=== PATIENT | male | born 1970 | race Caucasian/White ===

== ENCOUNTER 2018-03-19 10:29 | Observation (INO) | payer OTHER, SELFPAY ==
[2018-03-19] VITALS (9 sets, daily range): BP systolic 111–141; BP diastolic 43–87; PULSE 72–109; RESP 15–18; TEMP 36.5–37.9; O2SAT 91–98; BMI 35.9
--- NOTE | 2018-03-19 10:32 | EKG12_ITS ---
Test Reason : PRE OP Blood Pressure : / mmHG Vent. Rate : 081 BPM Atrial Rate : 081 BPM P-R Int : 142 ms QRS Dur : 082 ms QT Int : 380 ms P-R-T Axes : 009 000 038 degrees QTc Int : 441 ms Normal sinus rhythm Abnormal ECG Confirmed by MAX CHANCE, RAINER ([id number]), editor news GAVIN ISBELL ([id number]) on 03/25/2018 9:19:53 AM Referred By: MOOK Confirmed By:RAINER SANTANA MD
--- NOTE | 2018-03-19 10:38 | ED.VISSUMM ---
- ER Visit Summary Date of Service: 03/19/18 Chief Complaint: Injury left knee and unable to move History of Present Illness: The patient is a 47 M who was cutting tree stumps. Chainsaw bucked. He sustained laceration over the left knee. He states he is unable to move his left lower extremity. He has not eaten since last evening. He reports sips of water this morning. Last tetanus immunization unknown. Reports allergy to penicillin, unknown reaction. Patient denies fever, chills night sweats. Denies any ocular, visual auditory symptoms he denies any cardiac respiratory symptoms. He denies any GI symptoms. He is on no anticoagulant. He denies paresthesia, anesthesia or motor weakness. Physical Examination: Vital signs remarkable for an elevated blood pressure 133/87. Head is atraumatic normocephalic. Pupils are equal round reactive. Extraocular muscles are intact. TMs are pearly white with landmarks noted. Nares patent with no drainage. Posterior pharynx without erythema or exudate. Uvula is midline. There is no dysphonia or dysphasia. Trachea is midline. There is no stridor with auscultation of the neck. Heart is regular without murmur, gallop or rub. S1 and S2 are normal. Lungs are clear to auscultation with good movement of air bilaterally. Abdomen soft nontender. Examination left lower extremity reveals a 5+ cm horizontal laceration over the left patella. Exploration of the wound reveals debris and complete laceration of the quadricep tendon. DP and PT pulses are palpable. He is alert oriented with a nonfocal neurologic exam. Test Results: EKG reveals a sinus rhythm rate of 81 with motion artifact. Two-view x-ray of the knee reveals subcutaneous air with disruption of the quadricep tendon. There appears to be involvement of the lateral femoral condyle as well. Air is noted within the joint as well. CBC and BMP are unremarkable. Emergency Department Course and Treatment: IV was established. He was medicated with 4 mg of Zofran 4 mg of morphine. Tetanus immunization was updated. Because of penicillin allergy he received 600 mg of clindamycin. Appropriate preoperative blood work was obtained as well as EKG. Patient was made n.p.o. Dr. Vyas was contacted and plan is to the operating room. Treatment Plan: Orthopedic consultation. [address] Néstor Scott Disposition: Operating room Impression: 1. Traumatic arthrotomy left knee with complete laceration quadricep tendon and possible injury to lateral femoral condyle This note was generated with [employer] dictation software. It may contain incorrect words, spelling, and punctuation that were not noted in review of the chart prior to signing ED Disposition - Plan for ED Patient: Chief Complaint: Trauma
[2018-03-19] MEDS: Ondansetron 4 MG/2 ML Vial IV (10:41)
[2018-03-19] MEDS: Diphth,Pertuss(Acell),Tet Vac 0.5 ML Vial IM (10:41)
[2018-03-19] MEDS: 0.9% Normal Saline 1,000 ML 150 ML IV ×2 (10:41→19:40)
[2018-03-19] MEDS: Morphine 4 MG/ML Syringe IV (10:41)
--- NOTE | 2018-03-19 10:41 | ED.DCSUM_ITS ---
- ER Visit Summary Date of Service: 03/19/18 Chief Complaint: Injury left knee and unable to move History of Present Illness: The patient is a 47 M who was cutting tree stumps. Chainsaw bucked. He sustained laceration over the left knee. He states he is unable to move his left lower extremity. He has not eaten since last evening. He reports sips of water this morning. Last tetanus immunization unknown. Reports allergy to penicillin, unknown reaction. Patient denies fever, chills night sweats. Denies any ocular, visual auditory symptoms he denies any cardiac respiratory symptoms. He denies any GI symptoms. He is on no anticoagulant. He denies paresthesia, anesthesia or motor weakness. Physical Examination: Vital signs remarkable for an elevated blood pressure 133/ 87. Head is atraumatic normocephalic. Pupils are equal round reactive. Extraocular muscles are intact. TMs are pearly white with landmarks noted. Nares patent with no drainage. Posterior pharynx without erythema or exudate. Uvula is midline. There is no dysphonia or dysphasia. Trachea is midline. There is no stridor with auscultation of the neck. Heart is regular without murmur, gallop or rub. S1 and S2 are normal. Lungs are clear to auscultation with good movement of air bilaterally. Abdomen soft nontender. Examination left lower extremity reveals a 5+ cm horizontal laceration over the left patella. Exploration of the wound reveals debris and complete laceration of the quadricep tendon. DP and PT pulses are palpable. He is alert oriented with a nonfocal neurologic exam. Test Results: EKG reveals a sinus rhythm rate of 81 with motion artifact. Two- view x-ray of the knee reveals subcutaneous air with disruption of the quadricep tendon. There appears to be involvement of the lateral femoral condyle as well. Air is noted within the joint as well. CBC and BMP are unremarkable. Emergency Department Course and Treatment: IV was established. He was medicated with 4 mg of Zofran 4 mg of morphine. Tetanus immunization was updated. Because of penicillin allergy he received 600 mg of clindamycin. Appropriate preoperative blood work was obtained as well as EKG. Patient was made n.p.o. Dr. Vyas was contacted and plan is to the operating room. Treatment Plan: Orthopedic consultation. [address] Néstor Scott Disposition: Operating room Impression: 1. Traumatic arthrotomy left knee with complete laceration quadricep tendon and possible injury to lateral femoral condyle This note was generated with [employer] dictation software. It may contain incorrect words, spelling, and punctuation that were not noted in review of the chart prior to signing ED Disposition - Plan for ED Patient: Chief Complaint: Trauma
[2018-03-19 10:44] LABS: Absolute Lymphocyte Count 2.85 X10^3/ul (0.83-4.51); Basophil# 0.06 X10^3/uL; Basophil% 0.8 % (0-1); Eosinophil# 0.22 X10^3/uL; Eosinophils% 2.8 % (0-5); Hematocrit 45.6 % (40-54); Hemoglobin 15.4 g/dl (13.0-16.5); Lymphocyte # 2.85 X10^3/ul (4.0); Lymphocyte % 35.9 % (19-41); Mean Corp Hgb Conc 33.8 g/gl (32-36); Mean Corpuscular Hgb 30.8 pg (27.0-32.0); Mean Corpuscular Volume 91.2 fL (80-94); Mean Platelet Vol. 9.8 fl (6.2-12.0); Monocyte# 0.83 X10^3/uL; Monocyte% 10.5 % (0-10); Neutrophil # 3.95 X10^3/uL (2.7-7.7); Neutrophil % 49.7 % (47-70); POSITIVE COUNT NO; POSITIVE DIFFERENTIAL NO; POSITIVE MORPHOLOGY NO; Platelet Count 294 K/mm3 (150-450); RBC Distribution Width CV 12.3 % (11.6-14.6); RBC Distribution Width SD 40.9 fl (35.1-43.9); White Blood Count 7.9 K/mm3 (4.4-11.0)
[2018-03-19] MEDS: Clindamycin 600 MG/50 ML BAG 100 MG IV (10:49)
[2018-03-19] MEDS: DiphenhydrAMINE 50 MG/ML Syringe 25 MG IV (10:58)
--- NOTE | 2018-03-19 11:15 | RAD_ITS ---
STUDY: X-RAY - LEFT KNEE REASON FOR EXAM: Chainsaw injury of the left knee. TECHNIQUE: 2 view(s) of the knee. COMPARISON: None. FINDINGS: Normal visualized distal femur. Normal visualized proximal tibia and fibula. Normal proximal tibiofibular articulation. Normal medial femorotibial compartment. Normal lateral femorotibial compartment. Normal patellofemoral articulation. There is a soft tissue defect overlying the patella with soft tissue gas and gas in the knee joint. There may be a quadriceps tendon injury. RAD/Knee 1 or 2 Views IMPRESSION: Soft tissue defect overlying the patella with gas in the soft tissues and knee joint. No demonstrated fracture. Electronically Signed: Chase Galarza MD at 11:48 EDT Tel , Service support ,
[2018-03-19 11:18] LABS: Anion Gap 10 (5-15); BUN 13 mg/dL (7-18); BUN/Creat Ratio 13.1 RATIO (10-20); Calcium,Total 8.6 mg/dL (8.5-10.1); Chloride 107 mmol/L (98-107); Creatinine, Serum 0.99 mg/dL (0.70-1.30); EST Glomerular Filtration Rate 87 mL/min (>60); Est Glom Filt Rate - Afr Amer 105 mL/min (>60); Estimated Creatinine Clearance 109.55 ml/min; Glucose 106 mg/dL (74-106); Sodium Level 141 mmol/L (136-145)
--- NOTE | 2018-03-19 11:22 | NURSING ---
pt had reaction after morphine administration. rash up arm and chest, gave pt benadryl which resolved rash , added morphine to allergy list.
--- NOTE | 2018-03-19 12:04 | PCM.HP.STD ---
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 Sean was apparently working with a chain saw to remove a stump in a squatted position. The chainsaw kicked and ended up striking his thigh causing a full thickness laceration. He went to the emergency department where it was identified that he had a quadriceps tendon injury and laceration full-thickness which was quite dirty. His immunizations were updated by the ER physician. X-rays were obtained which were negative. Patient's pain is reasonably controlled Past Medical History Allergies morphine Allergy (Verified 03/19/18 11:22) Rash reaction noted in er after administration, was added to allergy list after benadryl Penicillins [PCN] Allergy (Verified 03/19/18 10:29) Unknown Home Medications: Ambulatory Orders Medication Instructions Recorded NK [NK] 03/19/18 Surgical History: - - ORIF of his hip for fracture Lives: Spouse/ Significant Other Smoking Status: Never smoker Review of Systems Constitutional: Denies: Chills, Fever, Weight Change HEENT: Denies: Head Aches, Sinus Congestion, Sinus Drainage Cardiovascular: Denies: Chest Pain, Palpitations Respiratory: Denies: Cough, Shortness of breath at rest, Sputum production Gastrointestinal: Denies: Abdominal Pain, Nausea, Vomiting Genitourinary: Denies: Dysuria Musculoskeletal: Reports: - - Per history of present illness Skin: Reports: Wounds - Left thigh Neurological: Denies: Numbness, Tingling, Focal weakness Psychiatric: Denies: Anxiety, Depression, Homicidal Ideations, Suicidal Ideations Hematologic/ Lymphatic: Denies: Easy Bruising, Easy Bleeding VTE Information - Inpt Only VTE Present on Admission: Yes VTE Mechan Device Prophylaxis: SCD's VTE Pharm Prophylaxis ordered?: Yes - Physical Exam General: Alert, Oriented x3, Cooperative HEENT: Atraumatic, PERRLA, EOMI, Normocephalic Neck: Supple, No JVD, Negative Carotid Bruits Lungs: Normal air movement Cardiovascular: Regular rate Abdomen: Soft Extremities: - - Focused examination patient's left lower extremity reveals a 5 cm laceration overlying the patella superior aspect which is full-thickness. There does appear to be quadriceps tendon involvement. Patient unable to complete a straight leg raise. He has no neurologic deficit. Full ankle range of motion is noted. Secondary survey is negative for pain in the right lower extremity and bilateral upper extremities Neurological: Cranial nerves II-XII grossly intact Vital Signs Temp Pulse Resp BP Pulse Ox 97.8 F 75 15 111/79 94 03/19/18 10:30 03/19/18 10:53 03/19/18 10:53 03/19/18 10:53 03/19/18 10:53 Oxygen Delivery Method Room Air Weight: 279 lb 5.211 oz Body Mass Index (BMI) 35.9 Laboratory Tests Past 24 Hrs 03/19/18 03/19/18 03/19/18 10:30 10:30 10:54 WBC 7.9 RBC 5.00 Hgb 15.4 Hct 45.6 MCV 91.2 MCH 30.8 MCHC 33.8 RDW 12.3 RDW Differential 40.9 Plt Count 294 MPV 9.8 Immature Gran % (Auto) 0.300 Neut % (Auto) 49.7 Lymph % (Auto) 35.9 Darke % (Auto) 10.5 H Eos % (Auto) 2.8 Baso % (Auto) 0.8 Absolute Neuts (auto) 4.0 Absolute Lymphs (auto) 2.85 Total Counted Not Reportable Sodium Cancelled 141 Potassium Cancelled 4.0 Chloride Cancelled 107 Carbon Dioxide Cancelled 24.0 Anion Gap Cancelled 10 BUN Cancelled 13 Creatinine Cancelled 0.99 Estim Creat Clear Calc Cancelled 109.55 Est GFR (MDRD) Af Amer Cancelled 105 Est GFR (MDRD) Non-Af Cancelled 87 BUN/Creatinine Ratio Cancelled 13.1 Glucose Cancelled 106 Calcium Cancelled 8.6 Assessment/Plan Full-thickness laceration complex 5 cm in length involving muscle/tendon left thigh The patient will be taken to the operating room for repair of the quadriceps tendon and laceration. We will also perform a washout as the wound is dirty. This will be done arthroscopically as I do suspect that this does involve the knee joint itself. Patient will be admitted overnight and likely discharged tomorrow if stable. I discussed this with Virgen at length. Risks of surgery were discussed and he does understand the alternative of no surgery which would not be good in terms of functional lower extremity. Consent form was signed
--- NOTE | 2018-03-19 14:09 | PCM.OPRPT ---
Report of Operation Date of Procedure: 03/19/18 Pre-Operative Diagnosis: Chainsaw injury left knee with complex laceration and laceration of the quadriceps tendon Post-Operative Diagnosis: Same Surgery/Procedure Performed:: Arthroscopic irrigation of left knee with debridement and primary closure of quadriceps tendon and primary closure of complex laceration 8 cm in length Description of Surgical Findings:: Quadriceps laceration Type of Anesthesia:: General Estimated Blood Loss (mL): 50 Fluids Replaced: See anesthesia report Description of Procedure: Surgical indications: Please see history and physical dated 03/19/2018 Procedure description: Patient was greeted in the preoperative area. His left lower extremity was marked with surgical marker. Patient was then taken to operating room suite #5. After adequate anesthesia was obtained and airway secured well-padded tourniquet was placed on patient's left lower extremity. The leg was then prepped draped in usual sterile fashion. Surgical timeout was performed surgery was commenced. Saline arthrogram was initially performed there is no obvious extravasation of fluid at the wound. Exploration of the wound however did confirm the presence of a laceration to the quadriceps tendon that did propagate into the knee joint. Because of this I did use a arthroscope and assess the articular cartilage which appeared to be in normal repair without any abnormality. At this point I then used the arthroscopic pump and irrigated the knee as well as the wound with approximately 12,000 mL of fluid. Once this was complete I then evaluated the quadriceps tendon. Patient had complete laceration of the lateral three fourths of the quadriceps tendon off of the superior pole of the patella. There is a very small amount of tissue remaining on the superior pole patella superior laterally. There is a partial-thickness tear that did extend into the vastus medialis on the medial side. Medial side of the psoas tendon remained intact. I decorticated the superior pole of the patella and created 2 drill holes with a 2.5 mm drill bit in an antegrade fashion. I then cleaned the leading edge of the affected quadriceps tendon. I did have to extend my incision from the laceration in a longitudinal fashion proximally in order to perform the repair. #5 FiberWire was then placed in a whipstitch type fashion through the quadriceps tendon. 1 of these limbs were then placed in the middle drill hole and the second limb was placed in the lateral drill hole. These were retrieved with a suture passer. With the knee held in strict extension I then tied this over a bony bridge distally in order to approximate the prepared tendon to the decorticated superior pole the patella. Once this was complete #1 Vicryl on a tapered needle was then used to approximate the medial portion to this repaired portion as well as to repair the laceration that propagated into the vastus medialis. I then in a [id number] fashion repaired the remaining tissue from the quadriceps tendon to the repaired quadriceps tendon for additional security. The repair did have to extend into the lateral retinaculum which was also approximated with [id number] #1 Vicryl. I was unable to flex the knee to approximately 30? without concern of gapping at the repair site I did not feel that I should take this further than 30?. This portion of the procedure the incision was then closed with 0 Vicryl and the laceration was debrided to remove any nonviable jagged edges from the chainsaw in an inverted type fashion using 0 Vicryl. Once the skin was approximated surgical gogo were placed in the skin. A well-padded nonadherent sterile dressing was applied secured with web roll and Albino wrap. Patient was then placed in a knee immobilizer. Postoperatively patient will be weightbearing as tolerated as long as his knee is immobilized in an extended fashion. Patient will require maintaining full extension of this knee for approximately 4-[address] him in a T ROM hinged brace which he will start some bending at approximately 4 weeks graduating this by approximately 10? weekly as able. Isometric exercises can begin at 6 weeks and progressive resistance exercises at approximately 8 weeks - Complications None known - Admit VTE Documentation VTE Present on Admission: Yes VTE Mechan Device Prophylaxis: SCD's, Thigh High ANTONELLA Hose VTE Pharm Prophylaxis ordered?: Yes
[2018-03-19] MEDS: HYDROcodone Bitartrate/Apap 5/325 Tablet PO ×2 (16:28→22:43)
[2018-03-19] MEDS: Clindamycin 900 MG/50 ML BAG 75 MG IV (22:01)
[2018-03-20 02:51] VITALS: BP 113/56; PULSE 110; RESP 16; TEMP 36.9; O2SAT 98
[2018-03-20] MEDS: 0.9% Normal Saline 1,000 ML 150 ML IV (03:56)
[2018-03-20] MEDS: Clindamycin 900 MG/50 ML BAG 75 MG IV (05:54)
[2018-03-20] MEDS: Aspirin E.C. 325 MG Tablet PO (08:20)
[2018-03-20] MEDS: HYDROcodone Bitartrate/Apap 5/325 Tablet PO (08:20)
[2018-03-20 08:50] VITALS: BP 128/88; PULSE 98; RESP 18; TEMP 37.1; O2SAT 98
--- NOTE | 2018-03-20 09:11 | PN.ORTHO_ITS ---
Subjective: Patient sitting at bedside eating breakfast. Patient states pain is well- managed. Denies any numbness or tingling or loss of function of his left foot. Denies chest pain, shortness breath, calf pain, nausea vomiting. No other complaints ready for discharge home Objective: Incision/laceration clean dry and intact. Dressings clean dry intact. No calf tenderness. He has good plantar flexion dorsiflexion of the foot and ankle. Neurovascular is otherwise intact. Vital signs and labs all within normal limits. Patient is afebrile. - Physical Exam General: Alert, Oriented x3, Cooperative Oral: Moist Mucosa Neurological: Cranial nerves II-XII grossly intact Psych/Mental Status: Normal Affect, Alert and oriented to time, place, person, mood and affect Vital Signs Temp Pulse Resp BP Pulse Ox 98.5 F 110 H 16 113/56 L 98 03/20/18 02:51 03/20/18 02:51 03/20/18 02:51 03/20/18 02:51 03/20/18 02:51 Oxygen Flow Rate (L/min) 3 Oxygen Delivery Method Nasal Cannula Weight: 126.7 kg Body Mass Index (BMI) 35.9 Intake and Output for Last 24 Hours 03/18/18 03/19/18 03/20/18 23:59 23:59 23:59 Intake Total 2300 / 2300 2140 / 2140 Balance 2300 / 2300 2140 / 2140 Medical Necessity - Tobacco Use Smoking Status: Never smoker Assessment/Plan Status post arthroscopic irrigation of left knee, debridement, repair of quadriceps tendon, and complex closure of chainsaw injury/laceration Plan 1. Continue all pain medications as prescribed 2. Continue antibiotics as prescribed 3. Must wear knee immobilizer at all times. With no flexion of the knee. 4. Weight-bear as tolerated with the assistance of walker or crutches and must be wearing the immobilizer 5. Elevate and ice 6. Follow-up on 03/25/2018
--- NOTE | 2018-03-20 09:22 | PCM.DC.ORTHO ---
Discharge Diet: No Restrictions Discharge Activity: May Not Drive, May Not Shower, Use Walker, Use Crutches May shower in (days): 7 May resume sexual activity in: No Restrictions Ice area for (Minutes): 30 Weight Bearing Status: Weight bearing as tolerated Keep extremity elevated above heart level: Operative Extremity Call your doctor if your incision/area has: Continuous Slow Oozing, Sudden Increased Bleeding, Increased Pain/ Swelling, Increased Redness, Foul Smelling Discharge Call your doctor if you observe: Fever of 101 or Higher, Coldness, Increased Pain, Numbness or Tingling, Change in Color, Calf discomfort Additional Instructions: 1 asprin 325mg po daily for 2 weeks weight bear only with knee immobilizer in place Allergies/Adverse Reactions: Allergies morphine Allergy (Verified 03/19/18 11:22) Rash reaction noted in er after administration, was added to allergy list after benadryl Penicillins [PCN] Allergy (Verified 03/19/18 10:29) Unknown Medications to take at Discharge Acetaminophen [Tylenol Extra Strength] 500 mg PO Q8 14 Days #90 tab 03/20/18 Aspirin E.C. [Ecotrin] 325 mg PO DAILY@0800 tablet 03/20/18 Clindamycin HCl [Cleocin HCl] 300 mg PO Q8H 10 Days #30 cap 03/20/18 Ensure Enlive 120 ml PO 4X/DAY liquid 03/20/18 Oxycodone [Oxyir] 5 mg PO Q6H PRN PRN 7 Days #60 tab 03/20/18 The following prescriptions were given: Oxycodone [Oxyir] 5 mg PO Q6H PRN PRN 7 Days #60 tab PRN Reason: Pain Acetaminophen [Tylenol Extra Strength] 500 mg PO Q8 14 Days #90 tab Clindamycin HCl [Cleocin HCl] 300 mg PO Q8H 10 Days #30 cap Primary Care Physician: Stan Noland NP-C [Primary Care Provider] - Please Follow Up With: Tito Chowdary PA-C When: 03-25-2018 call for appt. [phone]
== END 2018-03-20 11:20 | disposition home or self-care (01) ==
LOC: ED 11:02 → SDC 11:55 → AC 11:56 → MS3 12:45 → SDC 12:45
PROVIDERS: Orthopaedic Surgery; Admitting Provider Orthopaedic Surgery; Emergency Provider Emergency Medicine; Family Provider Nurse Practitioner Family; PCP Nurse Practitioner Family; Visit Provider Orthopaedic Surgery
PROC: (CPT 27385; principal; 2018-03-19 09:15)
DX: S76.122A Laceration of left quadriceps muscle, fascia and tendon, initial encounter (principal); S71.112A Laceration without foreign body, left thigh, initial encounter; W29.3XXA Contact with powered garden and outdoor hand tools and machinery, initial encounter; Y93.H9 Activity, other involving exterior property and land maintenance, building and construction; Y92.9 Unspecified place or not applicable; Z87.891 Personal history of nicotine dependence
CPT/HCPCS: 27385; 73560; 80048; 85025; 90715; 93005; 96361; 96365; 96375; 96376; 99218; 99283; J7030; G0378; J2405

== ENCOUNTER 2018-03-23 21:59 | Inpatient (IN) | payer OTHER, SELFPAY ==
[2018-03-23 22:00] VITALS: BP 117/73; PULSE 136; RESP 17; TEMP 38.1; BMI 29.0
--- NOTE | 2018-03-23 22:31 | RAD_ITS ---
STUDY: X-RAY - LEFT KNEE REASON FOR EXAM: Male, 47 years old. Fever, recent knee surgery to fix chainsaw related injury TECHNIQUE: 2 view(s) of the knee. COMPARISON: March 19, 2018. FINDINGS: Normal visualized distal femur. Normal visualized proximal tibia and fibula. Normal proximal tibiofibular articulation. Normal medial femorotibial compartment. Normal lateral femorotibial compartment. Normal patellofemoral articulation. There is anterior soft tissue edema and post surgical changes with multiple gogo. Subcutaneous gas is noted in the distal thigh. RAD/Knee 1 or 2 Views IMPRESSION: Anterior soft tissue edema and postsurgical changes of the knee with multiple gogo. Subcutaneous gas droplets in the distal thigh soft tissues anteriorly. Electronically Signed: Garrison Sanford DO at 23:08 EDT Tel [phone], Service support ,
[2018-03-23] MEDS: Acetaminophen 500 MG Tablet 1000 MG PO (22:39)
--- NOTE | 2018-03-23 22:50 | RAD_ITS ---
STUDY: X-RAY CHEST REASON FOR EXAM: Male, 47 years old. Fever TECHNIQUE: Single frontal view COMPARISON: None. FINDINGS: The lungs are clear and expanded. There is no demonstrated pleural abnormality. Cardiomegaly. Normal mediastinum and jackelyn. Normal visualized pulmonary arteries. Normal visualized aortic arch and descending thoracic aorta. Normal visualized thoracic spine. Normal visualized ribs, clavicles, and shoulders. There is no demonstrated abnormality of the visualized soft tissue structures of the upper abdomen. RAD/Chest 1 View (Portable) IMPRESSION: Cardiomegaly. Electronically Signed: Garrison Sanford DO at 23:00 EDT Tel [phone], Service support ,
[2018-03-23 22:56] LABS: Absolute Lymphocyte Count 1.61 X10^3/ul (0.83-4.51); Absolute Neutrophil Count 7.5 X10^3/uL (2.0-7.7); Basophil# 0.03 X10^3/uL; Basophil% 0.3 % (0-1); Eosinophil# 0.08 X10^3/uL; Eosinophils% 0.8 % (0-5); Hematocrit 40.2 % (40-54); Hemoglobin 13.5 g/dl (13.0-16.5); Lymphocyte # 1.61 X10^3/ul (4.0); Lymphocyte % 16.6 % (19-41); Mean Corp Hgb Conc 33.6 g/gl (32-36); Mean Corpuscular Hgb 31.1 pg (27.0-32.0); Mean Corpuscular Volume 92.6 fL (80-94); Mean Platelet Vol. 9.5 fl (6.2-12.0); Monocyte# 0.45 X10^3/uL; Monocyte% 4.7 % (0-10); Neutrophil # 7.48 X10^3/uL (2.7-7.7); Neutrophil % 77.4 % (47-70); Platelet Count 293 K/mm3 (150-450); RBC Distribution Width CV 12.2 % (11.6-14.6); RBC Distribution Width SD 41.7 fl (35.1-43.9); Red Blood Count 4.34 M/mm3 (4.6-6.2); White Blood Count 9.7 K/mm3 (4.4-11.0)
[2018-03-23 22:58] LABS: POSITIVE COUNT NO; POSITIVE DIFFERENTIAL NO; POSITIVE MORPHOLOGY NO
[2018-03-23 23:11] LABS: Erythrocyte Sedimentation Rate 111 mm/hr (0-15)
[2018-03-23 23:15] LABS: International Normalized Ratio 1.1; Prothrombin Time (Protime)PT. 13.8 SECONDS (11.7-14.9)
[2018-03-23 23:16] LABS: ALB/GLOB Ratio 0.6 RATIO (0.9-2.4); AST(SGOT) 35 U/L (15-37); Alanine Aminotransfer ALT/SGPT 53 U/L (16-61); Albumin, Serum 2.8 g/dL (3.2-5.0); Alkaline Phosphatase 84 U/L (45-117); Anion Gap 8 (5-15); BUN 11 mg/dL (7-18); BUN/Creat Ratio 11.1 RATIO (10-20); Calcium,Total 8.8 mg/dL (8.5-10.1); Chloride 100 mmol/L (98-107); EST Glomerular Filtration Rate 86 mL/min (>60); Est Glom Filt Rate - Afr Amer 104 mL/min (>60); Estimated Creatinine Clearance 105.42 ml/min; Glucose 154 mg/dL (74-106); Partial Thromboplast Time 34.9 Seconds (24.1-36.2); Potassium 3.7 mmol/L (3.5-5.1); Protein, Total 7.8 g/dL (6.4-8.2); Sodium Level 134 mmol/L (136-145)
[2018-03-23 23:22] VITALS: TEMP 37.7
[2018-03-23 23:24] LABS: Lactic Acid 1.8 mmol/L (0.4-2.0)
--- NOTE | 2018-03-23 23:46 | ED.VISSUMM ---
- ER Visit Summary Date of Service: 03/23/18 Chief Complaint: Postoperative fever History of Present Illness: The patient is a 47 M presenting for evaluation secondary to postoperative fever. Patient suffered a chain saw injury on Thursday of last week. He underwent arthroscopic washout of his knee and open repair of his quadriceps tendon. He was discharged on a course of clindamycin. Patient reports that today he was having some generalized malaise and then developed a fever of 103. Denies any other symptoms such as cough nausea vomiting diarrhea associated with this. Review of systems otherwise negative. Physical Examination: Vital signs notable for temperature of 100.6 heart rate of 136. Well-nourished male no acute distress. Moist mucous membranes. No JVD. Heart was tachycardic and regular no murmurs. Lungs sounds clear to auscultation bilaterally no rhonchi rales or wheezes. Abdomen was soft and nontender. Dressing was taken down of the left lower extremity and shows evidence of a significant amount of swelling, erythema surrounding the patient's incision, and some streaking going up in the left groin. No palpable crepitus noted. Patient does not move his knee secondary to instructions of not to move it. No active drainage coming from the incision. Remainder physical otherwise unremarkable. Test Results: CBC demonstrates no evidence of leukocytosis, chemistry and coags are unremarkable, lactic acid was negative, ESR and CRP are significantly elevated. Chest x-ray by my personal review as well as radiology is negative except for some cardiomegaly. Knee shows postsurgical changes as well as some potential gas in the soft tissues of the thigh. Emergency Department Course and Treatment: Patient presented secondary to a postoperative fever. His likely source does seem to be coming from his knee and thigh. He does not have an overall presentation of necrotizing fasciitis, but does have some gas on his x-ray. He was treated with triple antibiotic therapy including vancomycin and aztreonam and clindamycin. I did communicate this with the covering orthopedist Dr. Plascencia, who feels that the patient is stable to be admitted and be evaluated by orthopedics in the morning. He requested hospitalist admission, I discussed this with the hospitalist and they wished this to be a surgical admission as it is a postsurgical complication. Hospitalist and orthopedist will discuss this, and the patient will be admitted for further treatment. Disposition: Admission Impression: 1. Septic arthritis of the left knee status post operative washout This note was generated with [employer] dictation software. It may contain incorrect words, spelling, and punctuation that were not noted in review of the chart prior to signing ED Disposition - Plan for ED Patient: Disposition: Acute Care [facility] Chief Complaint: Fever
--- NOTE | 2018-03-23 23:49 | ED.DCSUM_ITS ---
- ER Visit Summary Date of Service: 03/23/18 Chief Complaint: Postoperative fever History of Present Illness: The patient is a 47 M presenting for evaluation secondary to postoperative fever. Patient suffered a chain saw injury on Thursday of last week. He underwent arthroscopic washout of his knee and open repair of his quadriceps tendon. He was discharged on a course of clindamycin. Patient reports that today he was having some generalized malaise and then developed a fever of 103. Denies any other symptoms such as cough nausea vomiting diarrhea associated with this. Review of systems otherwise negative. Physical Examination: Vital signs notable for temperature of 100.6 heart rate of 136. Well-nourished male no acute distress. Moist mucous membranes. No JVD. Heart was tachycardic and regular no murmurs. Lungs sounds clear to auscultation bilaterally no rhonchi rales or wheezes. Abdomen was soft and nontender. Dressing was taken down of the left lower extremity and shows evidence of a significant amount of swelling, erythema surrounding the patient' s incision, and some streaking going up in the left groin. No palpable crepitus noted. Patient does not move his knee secondary to instructions of not to move it. No active drainage coming from the incision. Remainder physical otherwise unremarkable. Test Results: CBC demonstrates no evidence of leukocytosis, chemistry and coags are unremarkable, lactic acid was negative, ESR and CRP are significantly elevated. Chest x-ray by my personal review as well as radiology is negative except for some cardiomegaly. Knee shows postsurgical changes as well as some potential gas in the soft tissues of the thigh. Emergency Department Course and Treatment: Patient presented secondary to a postoperative fever. His likely source does seem to be coming from his knee and thigh. He does not have an overall presentation of necrotizing fasciitis, but does have some gas on his x-ray. He was treated with triple antibiotic therapy including vancomycin and aztreonam and clindamycin. I did communicate this with the covering orthopedist Dr. Plascencia, who feels that the patient is stable to be admitted and be evaluated by orthopedics in the morning. He requested hospitalist admission, I discussed this with the hospitalist and they wished this to be a surgical admission as it is a postsurgical complication. Hospitalist and orthopedist will discuss this, and the patient will be admitted for further treatment. Disposition: Admission Impression: 1. Septic arthritis of the left knee status post operative washout This note was generated with [employer] dictation software. It may contain incorrect words, spelling, and punctuation that were not noted in review of the chart prior to signing ED Disposition - Plan for ED Patient: Disposition: Acute Care Hospital [facility] Chief Complaint: Fever
[2018-03-23 23:55] VITALS: BP 132/74; PULSE 103; RESP 23; O2SAT 97
[2018-03-24] VITALS (14 sets, daily range): BP systolic 116–142; BP diastolic 66–92; PULSE 93–111; RESP 14–19; TEMP 26.6–37.6; O2SAT 93–100; BMI 36.3; BMI 36.4
--- NOTE | 2018-03-24 | FLU_PTH ---
PATIENT: KANE CROCKETT LOC: MS3 U#:[id number] AGE/SX: 47/M ROOM: [facility] RE03/24/[address]: Dr. Stephy Stout DO : 1970 BED: 1 DIS: 03/27/2018 SPEC #: [id number] RECD: 03/24/18 14:43 STATUS: SOUT REQ #: [id number] JAC: 03/24/18 00:[address]: Néstor Scott DEPT: CYTOLOGY RECD BY: Yves Petit ENTERED: 03/24/18 14:43 SP TYPE: Fluid OTHR DR: Dr. Néstor Scott, DO Dr. Td Villa Dr., MD Richard Dennis Tompkins, TITLE SUPERVISOR-C Tissues: Knee, NOS Procedures: Pap Stain (control) Special Stain Group II Special Stain Group I Surgery Specimen Level IV AFB Stain (control) GMS Stain (control) Cell Block Cytospin Fluid Comments: @ Ordering doctor for SSII edited from to @ by BRIAN at 03/24/18 1513 @ Ordering doctor for SUIV edited from to @ by BRIAN at 03/24/18 1513 @ Ordering doctor for CYSPIN edited from to @ by RBIAN at 03/24/18 1513 @ Submitting doctor edited from to DR.[email or web address] Farrar by BRIAN at 03/24/18 1513 HEADER OPERATION: Aspiration of left knee, left knee arthroscopy PRE-OP DIAGNOSIS: Left knee septic arthritis; infected wound TISSUE SUBMITTED: Left knee aspiration for cytology DIAGNOSIS CYTOLOGY Left knee aspiration for cytology (cytospin and cell block): Negative for malignant cells. Acute inflammation. Special stains for acid fast bacilli and fungi are negative for organisms; matched controls are appropriate. SJ:rg 03/25/18 CYTOLOGY STUDY Slides are reviewed. The specimen entirely consists of neutrophils. CYTOLOGY GROSS Received is 15 ml of orange cloudy fluid labeled with the patient's name and and designated per the requisition as left knee. Submitted for cytology preparation including cell block. 03/24/18 TC:2 CPT: 10203, 07769, 12269 x2
[2018-03-24] MEDS: Clindamycin 600 MG/50 ML BAG 100 MG IV ×2 (00:04→05:56)
[2018-03-24] MEDS: Ondansetron 4 MG/2 ML Vial IV (00:24)
--- NOTE | 2018-03-24 02:45 | PCM.CONS.GEN ---
Problem List (1) Left knee septic arthritis Status: Acute (2) Left thigh/knee soft tissue infection Status: Acute (3) Recent lacerated wound of left knee Status: Chronic Reason for Consult Date of Consultation: 03/23/18 Reason for Consultation: Antibiotic management for septic left knee arthritis/soft tissue infection. History of Present Illness: The patient is a 47 year old M with no significant past medical history had chainsaws injury left knee and left quadriceps tendon on last Thursday for which he underwent open repair of quadriceps tendon and arthroscopic knee irrigation by Dr. Scott. He was discharged on clindamycin and was told if he gets fever returned to ER. On Thursday afternoon he felt fever, measured 103 Fahrenheit at home and then in ER 100.6 Fahrenheit, accompanied with reflex tachycardia, 136/min but no hypoxia/tachypnea or shortness of breath. Patient has left knee immobilizer and was told on assisted walking on walker Patient noticed redness, swelling over left knee in afternoon today and mild pain. In ED, patient was started on IV aztreonam as is allergic to penicillin, clindamycin and vancomycin. The patient is being admitted under Dr. Plascencia service and hospitalist service been consulted. Patient was seen about 11:30 PM on 03/23/2018 in ED Past Medical History Past Medical History (Chronic Problems): Chronic Problems Recent lacerated wound of left knee (Chronic) Allergies morphine Allergy (Verified 03/23/18 22:04) Rash reaction noted in er after administration, was added to allergy list after benadryl Penicillins [PCN] Allergy (Verified 03/23/18 22:04) Unknown Home Medications: Ambulatory Orders Medication Instructions Recorded Acetaminophen [Tylenol Extra 500 mg PO Q8 14 Days #90 tab 03/20/18 Strength] Oxycodone [Oxyir] 5 mg PO Q6H PRN PRN 7 Days #60 tab 03/20/18 Aspirin E.C. [Ecotrin] 325 mg PO DAILY@0800 03/24/18 Clindamycin HCl [Cleocin HCl] 300 mg PO Q8H 03/24/18 Surgical History: - - ORIF of his hip for fracture Smoking Status: Never smoker - *Family History Paternal History Items: No pertinent history Review of Systems Constitutional: Reports: Chills, Fever, Weakness HEENT: Denies: Head Aches, Sinus Congestion, Sinus Drainage Cardiovascular: Denies: Chest Pain, Palpitations Respiratory: Denies: Cough, Shortness of breath at rest, Sputum production Gastrointestinal: Denies: Abdominal Pain, Nausea, Vomiting Genitourinary: Denies: Dysuria Musculoskeletal: Denies: Joint Pain, Joint Tenderness Skin: Reports: Rash, Wounds Neurological: Denies: Numbness, Tingling, Focal weakness Psychiatric: Denies: Anxiety, Depression, Homicidal Ideations, Suicidal Ideations Hematologic/ Lymphatic: Denies: Easy Bruising, Easy Bleeding Patient Problems: Active and Suspected Problems Left knee septic arthritis (Acute) Left thigh/knee soft tissue infection (Acute) - Physical Exam General: Alert, Oriented x3, Cooperative HEENT: Atraumatic, PERRLA, EOMI, Normocephalic Neck: Supple, No JVD, Negative Carotid Bruits Lungs: Clear to auscultation, Normal air movement Cardiovascular: Regular Rhythm, Normal S1, Normal S2, No murmurs, Tachycardic Abdomen: Bowel Sounds Present, Soft, Non Tender, Non-Distended Extremities: Capillary Refill Less than 3 Seconds, Edema - Focal left knee and thigh swelling Skin: Ulcer/ Wound - Surgically stapled wound over distal left thigh and knee, Rash Present - Erythema, tenderness, induration present over left knee and distal left thigh. No gas crepitation palpated. Musculoskeletal: No Tenderness to Palpation of Joints or Extremities Neurological: Cranial nerves II-XII grossly intact Psych/Mental Status: Normal Affect, Appropriate Vital Signs Temp Pulse Resp BP Pulse Ox 98.6 F 94 18 123/75 H 100 03/24/18 01:49 03/24/18 01:49 03/24/18 01:49 03/24/18 01:49 03/24/18 01:49 Oxygen Delivery Method Room Air Weight: 275 lb 12.772 oz Body Mass Index (BMI) 36.3 Assessment/Plan All Active Problems Left knee septic arthritis (Acute) Left thigh/knee soft tissue infection (Acute) The patient is a 47 year old M with no significant past medical history had chainsaws injury left knee and left quadriceps tendon on last Thursday for which he underwent open repair of quadriceps tendon and arthroscopic knee irrigation by Dr. Scott. He was discharged on clindamycin and was told if he gets fever returned to ER. On Thursday afternoon he felt fever, measured 103 Fahrenheit at home and then in ER 100.6 Fahrenheit, accompanied with reflex tachycardia, 136/min but no hypoxia/tachypnea or shortness of breath. Patient noticed redness, swelling over left knee in afternoon today and mild pain. In ED, patient was started on IV aztreonam as is allergic to penicillin, clindamycin and vancomycin. The patient is being admitted under Dr. Plascencia service and hospitalist service been consulted. 1. SIRS (fever, tachycardia but no lactic acidosis) left thigh soft tissue infection with possibility of left knee septic arthritis: Patient is started on IV vancomycin, clindamycin and aztreonam. Panculture including blood cultures ?2, MRSA nasal screen ordered. ID consult. Surgical management as per Dr. Plascencia/Dr. Scott. CRP elevated. Left knee x-ray shows anterior soft tissue edema and postsurgical changes of the knee with multiple gogo. Subcutaneous gas droplet distal thigh soft tissue anteriorly. 2. Hyperglycemia: Patient denies diabetes mellitus type 2. A1c ordered for tomorrow. Accu-Chek before meals and at bedtime and cover with NovoLog sliding scale. DVT prophylaxis: On heparin 5000 units subcutaneous twice daily and does This note was generated with [employer] dictation software. 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 Clinical Impression(s) from Imaging Studies Knee X-Ray 03/23/18 22:31 IMPRESSION: Anterior soft tissue edema and postsurgical changes of the knee with multiple gogo. Subcutaneous gas droplets in the distal thigh soft tissues anteriorly. Chest X-Ray 03/23/18 22:50 IMPRESSION: Cardiomegaly. Laboratory Results 03/23/18 22:35: WBC 9.7, RBC 4.34 L, Hgb 13.5, Hct 40.2, MCV 92.6, MCH 31.1, MCHC 33.6, RDW 12.2, RDW Differential 41.7, Plt Count 293, MPV 9.5, Immature Gran % (Auto) 0.200, Neut % (Auto) 77.4 H, Lymph % (Auto) 16.6 L, [place] % (Auto) 4.7, Eos % (Auto) 0.8, Baso % (Auto) 0.3, Absolute Neuts (auto) 7.5, Absolute Lymphs (auto) 1.61, Total Counted Not Reportable, ESR 111 H 03/23/18 22:35: PT 13.8, INR 1.1, APTT 34.9 03/23/18 22:35: Sodium 134 L, Potassium 3.7, Chloride 100, Carbon Dioxide 26.0, Anion Gap 8, BUN 11, Creatinine 1.00, Estim Creat Clear Calc 105.42, Est GFR (MDRD) Af Amer 104, Est GFR (MDRD) Non-Af 86, BUN/Creatinine Ratio 11.1, Glucose 154 H, Calcium 8.8, Total Bilirubin 0.60, AST 35, ALT 53, Alkaline Phosphatase 84, C-React Prot Ext Range 273.00 H, Total Protein 7.8, Albumin 2.8 L, Globulin 5.0 H, Albumin/Globulin Ratio 0.6 L 03/23/18 22:35: Lactic Acid 1.8 03/23/18 22:35: Hemoglobin A1c Pending 03/24/18 02:30: MRSA (PCR) Pending Code Visit Inpatient E&M: 54581 Init Hosp L3
--- NOTE | 2018-03-24 03:19 | PCM.RX.CS ---
Consult Pharmacy has been consulted to manage selected antiobiotic: Vancomycin Type of Consult: New start Suspected Infection: Skin/Soft tissue Prior Doses of Antibiotics Received/Current Regimen: Medications Vancomycin HCl 1,500 mg/ (Sodium Chloride) 530 mls @ 250 mls/hr IV Q8H KAREN Discontinued Medications Vancomycin HCl 1,500 mg/ (Sodium Chloride) 530 mls @ 265 mls/hr IV X1 ONE Stop: 03/24/18 01:54 Last Admin: 03/24/18 00:04 Dose: 265 mls/hr Labs: Sodium 134 mmol/L (136-145) L 03/23/18 22:35 Potassium 3.7 mmol/L (3.5-5.1) 03/23/18 22:35 Chloride 100 mmol/L (98-107) 03/23/18 22:35 Carbon Dioxide 26.0 mmol/L (21.0-32.0) 03/23/18 22:35 Anion Gap 8 (5-15) 03/23/18 22:35 BUN 11 mg/dL (7-18) 03/23/18 22:35 Creatinine 1.00 mg/dL (0.70-1.30) 03/23/18 22:35 Est GFR (MDRD) Af Amer 104 mL/min (>60) 03/23/18 22:35 Est GFR (MDRD) Non-Af 86 mL/min (>60) 03/23/18 22:35 BUN/Creatinine Ratio 11.1 RATIO (10-20) 03/23/18 22:35 Glucose 154 mg/dL (74-106) H 03/23/18 22:35 Weight used for dosin.1 kg Estimated Creatinine Clearance: 105 Goal Trough: 15-20 mcg/mL Pharmacy Plan for Drug Dosing: Pharmacy Service will continue to monitor and adjust dosing as required. Follow-Up Labs: Trough Vancomycin Labs to be done on [date and time ordered]: 03/24/18 @7392
[2018-03-24 04:17] LABS: M R Staph aureus DNA By PCR Negative (Negative); Probe Check PASS; Specimen Processing Control PASS
[2018-03-24] MEDS: 0.9% Normal Saline 1,000 ML 150 ML IV ×3 (04:26→23:30)
[2018-03-24 05:20] LABS: Hemoglobin A1c 5.3 % (4.2-6.3)
[2018-03-24 06:41] LABS: Bedside Glucose 101 mg/dL (70-110)
[2018-03-24 06:47] LABS: Absolute Lymphocyte Count 1.13 X10^3/ul (0.83-4.51); Absolute Neutrophil Count 6.4 X10^3/uL (2.0-7.7); Basophil# 0.03 X10^3/uL; Basophil% 0.3 % (0-1); Eosinophil# 0.11 X10^3/uL; Eosinophils% 1.2 % (0-5); Hematocrit 40.1 % (40-54); Hemoglobin 13.4 g/dl (13.0-16.5); Lymphocyte # 1.13 X10^3/ul (4.0); Lymphocyte % 12.5 % (19-41); Mean Corp Hgb Conc 33.4 g/gl (32-36); Mean Corpuscular Hgb 31.1 pg (27.0-32.0); Mean Platelet Vol. 9.5 fl (6.2-12.0); Monocyte% 15.5 % (0-10); Neutrophil # 6.35 X10^3/uL (2.7-7.7); Neutrophil % 70.3 % (47-70); Platelet Count 220 K/mm3 (150-450); RBC Distribution Width CV 12.3 % (11.6-14.6); RBC Distribution Width SD 41.9 fl (35.1-43.9); Red Blood Count 4.31 M/mm3 (4.6-6.2)
[2018-03-24 06:48] LABS: POSITIVE COUNT NO; POSITIVE DIFFERENTIAL NO; POSITIVE MORPHOLOGY NO
--- NOTE | 2018-03-24 06:57 | PCM.HP.STD ---
History of Present Illness Date of Admission: 03/24/18 Chief Complaint: Left knee pain The patient is a 47 year old M who is well-known to me. Patient suffered a chainsaw injury last Thursday that required irrigation debridement and primary repair of the quadriceps tendon. At that time he also had arthroscopic irrigation of the knee joint. He was placed on Cleocin prophylactically and developed high-grade fever reported at 103 by the patient at home. He came to the ER and had a temperature of 100.6. Patient was admitted to orthopedic service. Hospitalist consultation has been completed. He is having significant amount of pain in the knee and redness overlying the anterior aspect of the knee Past Medical History Past Medical History (Chronic Problems): Chronic Problems Recent lacerated wound of left knee (Chronic) Allergies morphine Allergy (Verified 03/23/18 22:04) Rash reaction noted in er after administration, was added to allergy list after benadryl Penicillins [PCN] Allergy (Verified 03/23/18 22:04) Unknown Home Medications: Ambulatory Orders Medication Instructions Recorded Acetaminophen [Tylenol Extra 500 mg PO Q8 14 Days #90 tab 03/20/18 Strength] Oxycodone [Oxyir] 5 mg PO Q6H PRN PRN 7 Days #60 tab 03/20/18 Aspirin E.C. [Ecotrin] 325 mg PO DAILY@0800 03/24/18 Clindamycin HCl [Cleocin HCl] 300 mg PO Q8H 03/24/18 Surgical History: - - ORIF of his hip for fracture, I&D and repair of left quadriceps tendon status post chainsaw injury Smoking Status: Never smoker - *Family History Paternal History Items: No pertinent history Review of Systems Constitutional: Reports: Fever. Denies: Chills, Weight Change HEENT: Denies: Head Aches, Sinus Congestion, Sinus Drainage Cardiovascular: Denies: Chest Pain, Palpitations Respiratory: Denies: Cough, Shortness of breath at rest, Sputum production Gastrointestinal: Denies: Abdominal Pain, Nausea, Vomiting Genitourinary: Denies: Dysuria Musculoskeletal: Reports: - - See history of present illness Psychiatric: Denies: Anxiety, Depression, Homicidal Ideations, Suicidal Ideations VTE Information - Inpt Only VTE Present on Admission: Yes VTE Mechan Device Prophylaxis: SCD's, Thigh High ANTONELLA Hose Patient Problems: Active and Suspected Problems Left knee septic arthritis (Acute) Left thigh/knee soft tissue infection (Acute) - Physical Exam General: Alert, Oriented x3, Cooperative HEENT: Atraumatic, PERRLA, EOMI, Normocephalic Neck: Supple, No JVD Lungs: Normal air movement Cardiovascular: Regular rate Abdomen: Soft, Non Tender Skin: - - Well approximated wound from previous surgery on Thursday. Significant erythema about the anterior aspect of the knee. This is been marked with a pen Musculoskeletal: - - Range of motion strength of the leg not assessed. No drainage identified from the wound Neurological: Cranial nerves II-XII grossly intact Vital Signs Temp Pulse Resp BP Pulse Ox 98.6 F 94 18 123/75 H 100 03/24/18 01:49 03/24/18 01:49 03/24/18 01:49 03/24/18 01:49 03/24/18 01:49 Oxygen Delivery Method Room Air Weight: 275 lb 12.772 oz Body Mass Index (BMI) 36.3 Intake and Output for Last 24 Hours 03/22/18 03/23/18 03/24/18 23:59 23:59 23:59 Intake Total 952 / 952 Output Total 1650 / 1650 Balance -698 / -698 Laboratory Tests Past 24 Hrs 03/24/18 03/24/18 03/24/18 02:30 06:25 06:25 WBC 9.0 RBC 4.31 L Hgb 13.4 Hct 40.1 MCV 93.0 MCH 31.1 MCHC 33.4 RDW 12.3 RDW Differential 41.9 Plt Count 220 MPV 9.5 Immature Gran % (Auto) 0.200 Neut % (Auto) 70.3 H Lymph % (Auto) 12.5 L [place] % (Auto) 15.5 H Eos % (Auto) 1.2 Baso % (Auto) 0.3 Absolute Neuts (auto) 6.4 Absolute Lymphs (auto) 1.13 Total Counted Not Reportable Sodium Pending Potassium Pending Chloride Pending Carbon Dioxide Pending Anion Gap Pending BUN Pending Creatinine Pending Est GFR (MDRD) Af Amer Pending Est GFR (MDRD) Non-Af Pending BUN/Creatinine Ratio Pending Glucose Pending Calcium Pending Total Bilirubin Pending AST Pending ALT Pending Alkaline Phosphatase Pending Total Protein Pending Albumin Pending MRSA (PCR) Negative POC Glucose 03/24/18 06:31 POC Glucose 101 Assessment/Plan All Active Problems Left knee septic arthritis (Acute) Left thigh/knee soft tissue infection (Acute) Left knee septic arthritis Left knee superficial wound infection Recent laceration of left knee I reviewed patient's lab work. His white count is normal however his ESR and CRP are extremely elevated. Given his history of the chain saw injury in the high incidence of infection with that type of injury I do feel that being aggressive and treating this surgically would be appropriate. We will obtain cultures intraoperatively of the wound site as well as draw fluid from the knee to identify if this is intra-articular or not. I discussed this with Sean at length and he is in agreement with proceeding. We have contacted the surgical department and will proceed at approximately 11 AM. Risks benefits and alternatives to surgery were discussed. I certainly feel that the benefits outweigh the risks at this point
--- NOTE | 2018-03-24 07:31 | PN_ITS ---
Patient Problems: Active and Suspected Problems Left knee septic arthritis (Acute) Left thigh/knee soft tissue infection (Acute) Subjective: Hospitalist consult note Patient is a 47-year-old male who recently suffered a chain saw accident lacerating his lower extremity above the knee. He was seen by Dr. Néstor Scott and had irrigation and debridement at that time and a primary repair of the quadriceps tendon. He was placed on Cleocin prophylactically at discharge. He came to the emergency room at [facility] on 03/24/2018 complaining of fevers to 103?F. Temperature in the emergency room was 100.6?F. Pulse rate was 136 and the blood pressure was 117/73. He was 97% saturated on room air with a respiratory rate of 17. White blood cell count was 9.7 with 77.4% neutrophils. ESR was 111 and the CRP was 273. Blood glucose is elevated at 154 but hemoglobin A1c is 5.3. PT was within normal limits. Sodium was mildly decreased at 134. Blood cultures were sent. He was started on Aztreonam , clindamycin and vancomycin. He is currently n.p.o. in preparation for surgical debridement and washout. States his pain is adequately controlled. He has an allergy to morphine and gets a rash with pruritus. He was discharged on OxyIR from the hospital and tolerated this without side effects. He denies nausea and has had no emesis. He takes no medications on a chronic basis. There is no family history of coronary artery disease. He is a non-smoker. No history of COPD or asthma. - Physical Exam General: Alert, Oriented x3, Cooperative, No apparent distress HEENT: Atraumatic, PERRLA, EOMI, Normocephalic Oral: Moist Mucosa Neck: Supple, Trachea Midline Lungs: Clear to auscultation, No rhonchi, No wheeze, No rales Cardiovascular: Regular rate, Regular Rhythm, Normal S1, Normal S2, No murmurs, No Gallop Abdomen: Bowel Sounds Present, Soft, Non Tender, Non-Distended Extremities: No Calf Tenderness, - - The left knee is edematous and has erythema with increased warmth to touch. The gogo are intact and there is no purulent discharge. Negative Homans sign and negative Ben. He has no pain in the groin and there are no enlarged lymph nodes. Skin: No rashes, No breakdown Musculoskeletal: No Muscle Wasting Neurological: Cranial nerves II-XII grossly intact, Neuro grossly intact Psych/Mental Status: Normal Affect, Appropriate Vital Signs Temp Pulse Resp BP Pulse Ox 98.6 F 94 18 123/75 H 100 03/24/18 01:49 03/24/18 01:49 03/24/18 01:49 03/24/18 01:49 03/24/18 01:49 Oxygen Delivery Method Room Air Weight: 275 lb 12.772 oz Body Mass Index (BMI) 36.3 Intake and Output for Last 24 Hours 03/22/18 03/23/18 03/24/18 23:59 23:59 23:59 Intake Total 952 / 952 Output Total 1650 / 1650 Balance -698 / -698 Laboratory Tests Past 24 Hrs 03/24/18 03/24/18 03/24/18 02:30 06:25 06:25 WBC 9.0 RBC 4.31 L Hgb 13.4 Hct 40.1 MCV 93.0 MCH 31.1 MCHC 33.4 RDW 12.3 RDW Differential 41.9 Plt Count 220 MPV 9.5 Immature Gran % (Auto) 0.200 Neut % (Auto) 70.3 H Lymph % (Auto) 12.5 L [place] % (Auto) 15.5 H Eos % (Auto) 1.2 Baso % (Auto) 0.3 Absolute Neuts (auto) 6.4 Absolute Lymphs (auto) 1.13 Total Counted Not Reportable Sodium Pending Potassium Pending Chloride Pending Carbon Dioxide Pending Anion Gap Pending BUN Pending Creatinine Pending Est GFR (MDRD) Af Amer Pending Est GFR (MDRD) Non-Af Pending BUN/Creatinine Ratio Pending Glucose Pending Calcium Pending Total Bilirubin Pending AST Pending ALT Pending Alkaline Phosphatase Pending Total Protein Pending Albumin Pending MRSA (PCR) Negative POC Glucose 03/24/18 06:31 POC Glucose 101 Medical Necessity - Tobacco Use Smoking Status: Never smoker Assessment/Plan All Active Problems Left knee septic arthritis (Acute) Left thigh/knee soft tissue infection (Acute) Impressions 1. cellulitis of the LLE due to infected laceration LLE due to recent Chainsaw accident with lacerated L quadriceps tendon - 2. Hyperglycemia likely secondary to acute infection with normal hemoglobin A1c of 5.3. There is no family history of diabetes mellitus. 3. Hyponatremia-resolved with IV fluids. Surgery today for debridement and washout of wound above the left knee. Continue current antibiotics until culture can be obtained Cultures will be sent from the wound at the time of surgery Oxycodone for pain relief Benadryl PRN for rash or pruritus antiemetics PRN Code Visit Inpatient E&M: 22701 Subs Hosp L2
[2018-03-24 07:35] LABS: ALB/GLOB Ratio 0.5 RATIO (0.9-2.4); AST(SGOT) 29 U/L (15-37); Alanine Aminotransfer ALT/SGPT 50 U/L (16-61); Albumin, Serum 2.5 g/dL (3.2-5.0); Alkaline Phosphatase 75 U/L (45-117); Anion Gap 10 (5-15); BUN 9 mg/dL (7-18); BUN/Creat Ratio 12.7 RATIO (10-20); Calcium,Total 8.1 mg/dL (8.5-10.1); Chloride 102 mmol/L (98-107); Creatinine, Serum 0.71 mg/dL (0.70-1.30); EST Glomerular Filtration Rate 128 mL/min (>60); Est Glom Filt Rate - Afr Amer 155 mL/min (>60); Estimated Creatinine Clearance 148.48 ml/min; Globulin 4.7 g/dL (2.2-4.2); Glucose 169 mg/dL (74-106); Potassium 4.2 mmol/L (3.5-5.1); Protein, Total 7.2 g/dL (6.4-8.2); Sodium Level 138 mmol/L (136-145)
--- NOTE | 2018-03-24 11:15 | PCA ---
pt off floor
--- NOTE | 2018-03-24 12:13 | PCM.OPRPT ---
Report of Operation Date of Procedure: 03/24/18 Pre-Operative Diagnosis: Left knee septic arthritis. Infected wound status post chainsaw injury left knee Post-Operative Diagnosis: Same Surgery/Procedure Performed:: Aspiration of left knee, left knee arthroscopy with extensive synovectomy, left knee wound irrigation debridement retail service specialist: Tito Chowdary Type of Anesthesia:: General Anesthesiologist: Smith Vilchis Estimated Blood Loss (mL): 25 Fluids Replaced: See anesthesia report Description of Procedure: Procedure description: Sean was greeted in the preoperative area his left lower extremity was marked with surgical marker. Patient was then taken or [address] in a stable condition. After adequate anesthesia was obtained and airway secured a well-padded tourniquet was placed on patient's left lower extremity. Leg was then prepped and draped in usual sterile fashion. Surgical timeout was performed and surgery was commenced. The leg was elevated for approximately 5 minutes and the tourniquet was insufflated to 300 mmHg. An 18-gauge needle was then used in the superior lateral approach to aspirate the knee. I removed approximately 30 mL of turbid fluid which will be evaluated for infection. This certainly has the clinical appearance of the infected [place] knee. I then removed the gogo from the anterolateral portal and placed in the arthroscope inside the knee. An anterior medial portal was also made followed by a superomedial portal. Extensive synovectomy was then performed with a resector and shaver debriding any tissue that appeared to have some infection. The nidus of this appeared to be underneath the quadriceps tendon in the suprapatellar pouch. A total of 12,000 mL was flushed through the knee during this synovectomy. Once this was complete as much fluid as possible was removed from the knee. I then opened portion of the wound superiorly on the thigh. There is no purulence identified on digital inspection was performed to assess for an abscess which was not identified. I did obtain cultures. A total of 6000 mL of fluid was then used to irrigate superficially however clinically this does not appear to be the source of the patient's infection. At this point the wound was closed with non-braided PDS absorbable suture followed by gogo in the skin. Use of the physician registered medical assistant was helpful during this procedure. He helped with positioning manipulating the leg and closure of the wound. Post operatively patient will require IV antibiotics until we can determine the source of the infection as well as determine the bacteria causing this. If infectious disease is available will consider consultation. Patient tolerated procedure well - Admit VTE Documentation VTE Present on Admission: Yes VTE Mechan Device Prophylaxis: SCD's, Thigh High ANTONELLA Hose VTE Pharm Prophylaxis ordered?: Yes
--- NOTE | 2018-03-24 12:19 | OP.PCM_ITS ---
Report of Operation Date of Procedure: 03/24/18 Pre-Operative Diagnosis: Left knee septic arthritis. Infected wound status post chainsaw injury left knee Post-Operative Diagnosis: Same Surgery/Procedure Performed:: Aspiration of left knee, left knee arthroscopy with extensive synovectomy, left knee wound irrigation debridement licensed social worker: Tito Chowdary Type of Anesthesia:: General Anesthesiologist: Smith Vilcihs Estimated Blood Loss (mL): 25 Fluids Replaced: See anesthesia report Description of Procedure: Procedure description: Sean was greeted in the preoperative area his left lower extremity was marked with surgical marker. Patient was then taken or [address] in a stable condition. After adequate anesthesia was obtained and airway secured a well-padded tourniquet was placed on patient's left lower extremity. Leg was then prepped and draped in usual sterile fashion. Surgical timeout was performed and surgery was commenced. The leg was elevated for approximately 5 minutes and the tourniquet was insufflated to 300 mmHg. An 18-gauge needle was then used in the superior lateral approach to aspirate the knee. I removed approximately 30 mL of turbid fluid which will be evaluated for infection. This certainly has the clinical appearance of the infected [place] knee. I then removed the gogo from the anterolateral portal and placed in the arthroscope inside the knee. An anterior medial portal was also made followed by a superomedial portal. Extensive synovectomy was then performed with a resector and shaver debriding any tissue that appeared to have some infection. The nidus of this appeared to be underneath the quadriceps tendon in the suprapatellar pouch. A total of 12, 000 mL was flushed through the knee during this synovectomy. Once this was complete as much fluid as possible was removed from the knee. I then opened portion of the wound superiorly on the thigh. There is no purulence identified on digital inspection was performed to assess for an abscess which was not identified. I did obtain cultures. A total of 6000 mL of fluid was then used to irrigate superficially however clinically this does not appear to be the source of the patient's infection. At this point the wound was closed with non- braided PDS absorbable suture followed by gogo in the skin. Use of the physician care team assistant was helpful during this procedure. He helped with positioning manipulating the leg and closure of the wound. Post operatively patient will require IV antibiotics until we can determine the source of the infection as well as determine the bacteria causing this. If infectious disease is available will consider consultation. Patient tolerated procedure well - Admit VTE Documentation VTE Present on Admission: Yes VTE Mechan Device Prophylaxis: SCD's, Thigh High ANTONELLA Hose VTE Pharm Prophylaxis ordered?: Yes
--- NOTE | 2018-03-24 13:02 | PCA ---
pt off floor
[2018-03-24 13:05] LABS: Bedside Glucose 119 mg/dL (70-110)
[2018-03-24 13:31] LABS: Cytology, Body Fluid / CSF SEE PATHOLOGY REPORT
--- NOTE | 2018-03-24 14:38 | PCM.HP.ID ---
Problem List (1) Left knee septic arthritis Status: Acute Reason for Consult: LLE infection Consulted by: Dr. Scott History of Present Illness: The patient is a 47 year old M who cut his LLE with chainsaw on 03/19, came to [facility], taken to OR, sent home on po clinda. Had been doing ok until started with fever/chills on 03/23. Sx worsened, no n/v/d. No other rash. LLE with no new pain, swelling, redness, or drainage prior to presentation. CT showed gas in tissue. Put on clinda, vanc, aztreonam. Reports trouble breathing with PCN as a small child, but no issues with amoxicillin in past. Now s/p OR for debridement. Full ROS performed and neg except as noted above. - Medical History Past Medical History (Chronic Problems): Chronic Problems Recent lacerated wound of left knee (Chronic) Allergies/Adverse Reactions: Allergies morphine Allergy (Verified 03/23/18 22:04) Rash reaction noted in er after administration, was added to allergy list after benadryl Penicillins [PCN] Allergy (Verified 03/23/18 22:04) Unknown Home Medications: Ambulatory Orders Medication Instructions Recorded Acetaminophen [Tylenol Extra 500 mg PO Q8 14 Days #90 tab 03/20/18 Strength] Oxycodone [Oxyir] 5 mg PO Q6H PRN PRN 7 Days #60 tab 03/20/18 Aspirin E.C. [Ecotrin] 325 mg PO DAILY@0800 03/24/18 Clindamycin HCl [Cleocin HCl] 300 mg PO Q8H 03/24/18 - Social History SMOKING STATUS:: Never smoker Vital Signs Temp Pulse Resp BP Pulse Ox 98.2 F 94 18 132/88 H 96 03/24/18 13:47 03/24/18 13:47 03/24/18 13:47 03/24/18 13:47 03/24/18 13:47 Oxygen Flow Rate (L/min) 2 Oxygen Delivery Method Room Air Weight: 125.1 kg Body Mass Index (BMI) 36.3 Finger Stick Blood Glucose 119 Laboratory Tests Past 24 Hrs 03/24/18 03/24/18 03/24/18 02:30 06:25 06:25 WBC 9.0 RBC 4.31 L Hgb 13.4 Hct 40.1 MCV 93.0 MCH 31.1 MCHC 33.4 RDW 12.3 RDW Differential 41.9 Plt Count 220 MPV 9.5 Immature Gran % (Auto) 0.200 Neut % (Auto) 70.3 H Lymph % (Auto) 12.[address] [place] % (Auto) 15.5 H Eos % (Auto) 1.2 Baso % (Auto) 0.3 Absolute Neuts (auto) 6.4 Absolute Lymphs (auto) 1.13 Total Counted Not Reportable Sodium 138 Potassium 4.2 Chloride 102 Carbon Dioxide 26.0 Anion Gap 10 BUN 9 Creatinine 0.71 Estim Creat Clear Calc 148.48 Est GFR (MDRD) Af Amer 155 Est GFR (MDRD) Non-Af 128 BUN/Creatinine Ratio 12.7 Glucose 169 H Calcium 8.1 L Total Bilirubin 0.70 AST 29 ALT 50 Alkaline Phosphatase 75 Total Protein 7.2 Albumin 2.5 L Globulin 4.7 H Albumin/Globulin Ratio 0.5 L MRSA (PCR) Negative Miscellaneous Cytology 03/24/18 Unknown WBC RBC Hgb Hct MCV MCH MCHC RDW RDW Differential Plt Count MPV Immature Gran % (Auto) Neut % (Auto) Lymph % (Auto) [place] % (Auto) Eos % (Auto) Baso % (Auto) Absolute Neuts (auto) Absolute Lymphs (auto) Total Counted Sodium Potassium Chloride Carbon Dioxide Anion Gap BUN Creatinine Estim Creat Clear Calc Est GFR (MDRD) Af Amer Est GFR (MDRD) Non-Af BUN/Creatinine Ratio Glucose Calcium Total Bilirubin AST ALT Alkaline Phosphatase Total Protein Albumin Globulin Albumin/Globulin Ratio MRSA (PCR) Miscellaneous Cytology Pending - Other Studies Radiology: [] reviewed Other Studies: [] Route of nutrition/ use of supplements: [] Nutritional Intake: [] IV Site: [] Roberson Catheter: [] - Physical Exam General: Alert, Oriented x3, Cooperative, No apparent distress HEENT: Atraumatic Neck: Supple, No Nodes Lungs: Clear to auscultation, Normal air movement Cardiovascular: Regular rate, Regular Rhythm, No murmurs Abdomen: Bowel Sounds Present, Soft, Non Tender, Non-Distended Extremities: - - LLE with surg dressing in place Skin: No rashes IV Site: Peripheral, without redness Neurological: Cranial nerves II-XII grossly intact - Assessment/Plan Antibiotics: [] Assessment/Plan: [] Active and Suspected Problems Left knee septic arthritis (Acute) Left thigh/knee soft tissue infection (Acute) LLE infection s/p chainsaw accident and surgical debridement. Had been on clinda at home. Reports tolerating amoxicillin in past. Will cover him with vanc, clinda, and zosyn while surg cx pending. Will follow, thank you.
[2018-03-24] MEDS: Piperacil/Tazobactam 3.375 GM/50 ML ML IV ×2 (15:59→21:25)
[2018-03-24] MEDS: Acetaminophen 500 MG Tablet 1000 MG PO ×2 (16:00→21:25)
[2018-03-24 18:55] LABS: Bedside Glucose 216 mg/dL (70-110)
[2018-03-24] MEDS: Docusate Sodium 100 MG Capsule 200 MG PO (21:24)
[2018-03-24 21:32] LABS: RBC /Synovial Fluid 0.007 10^6/uL (0); Synovial Fld Polynuclear WBC # 13.349 10^3/ul
[2018-03-24 22:30] LABS: AUTO B FLUID DILUENT BKGD CT WBC <0.1 RBC <0.01 (W<.1,R<.01); Appearance /Synovial Fluid Cloudy (CLEAR); Color / Synovial Fluid Yellow (Pale Yellow); Source / Synovial Fluid LEFT KNEE; Synovial Fld Mononuclear WBC # 0.709 10^3/ul
[2018-03-24 22:31] LABS: Body Fluid QC Type(s) BF4Q; Lymph 3 %; Monocyte /Synovial Fluid 4 %; Neutrophil 93 % (0-25)
[2018-03-24 23:44] LABS: Vancomycin, Trough Level 19.4 ug/mL (5.0-15.0)
[2018-03-25 02:17] VITALS: BP 122/71; PULSE 82; RESP 18; TEMP 36.7; O2SAT 99
[2018-03-25] MEDS: Piperacil/Tazobactam 3.375 GM/50 ML ML IV ×3 (05:47→21:32)
[2018-03-25] MEDS: Acetaminophen 500 MG Tablet 1000 MG PO ×3 (05:47→21:29)
[2018-03-25] MEDS: Enoxaparin 40 MG/0.4 ML Syringe SC (05:48)
[2018-03-25 06:37] LABS: Absolute Lymphocyte Count 1.08 X10^3/ul (0.83-4.51); Absolute Neutrophil Count 9.6 X10^3/uL (2.0-7.7); Basophil# 0.01 X10^3/uL; Basophil% 0.1 % (0-1); Eosinophil# 0.01 X10^3/uL; Eosinophils% 0.1 % (0-5); Hematocrit 36.1 % (40-54); Lymphocyte # 1.08 X10^3/ul (4.0); Lymphocyte % 9.1 % (19-41); Mean Corp Hgb Conc 33.2 g/gl (32-36); Mean Corpuscular Hgb 31.6 pg (27.0-32.0); Mean Platelet Vol. 9.8 fl (6.2-12.0); Monocyte# 1.15 X10^3/uL; Monocyte% 9.7 % (0-10); Neutrophil # 9.55 X10^3/uL (2.7-7.7); Neutrophil % 80.8 % (47-70); Platelet Count 300 K/mm3 (150-450); RBC Distribution Width CV 11.9 % (11.6-14.6); RBC Distribution Width SD 40.5 fl (35.1-43.9); White Blood Count 11.8 K/mm3 (4.4-11.0)
[2018-03-25 06:41] LABS: POSITIVE COUNT NO; POSITIVE DIFFERENTIAL NO; POSITIVE MORPHOLOGY NO
[2018-03-25 06:55] LABS: Cholesterol 137 mg/dL (200); High Density Lipoprotein 23 mg/dL; Triglycerides 113 mg/dL; Very Low Density Lipoprotein 23 mg/dL (5-40)
[2018-03-25 07:41] VITALS: BP 124/82; PULSE 83; RESP 18; TEMP 36.8; O2SAT 98
--- NOTE | 2018-03-25 07:41 | PCM.PN.BLA ---
Progress Note Subjective: Patient denies any chest pain shortness of breath. He denies any fevers or chills. His pain is reasonably controlled Objective: 2+ knee effusion. Erythema persists. Incisions are clean and dry without drainage. Significant discomfort with attempted range of motion of the knee. Neurovascularly intact Impression: Left knee septic arthritis status post chainsaw injury and surgical debridement Plan: Reviewed the patient's lab work. His knee aspirate reveals 14,000 white blood cells with 93% segs. cultures are pending. There is no question in my mind given the clinical picture that this is a septic knee. We will see how the patient responds to the IV antibiotics today. Patient may require an additional surgical debridement tomorrow if the swelling and erythema is not improving.
[2018-03-25] MEDS: Aspirin E.C. 325 MG Tablet PO (07:46)
--- NOTE | 2018-03-25 10:33 | PN.ID_ITS ---
Patient Problems: Active and Suspected Problems Left knee septic arthritis (Acute) Left thigh/knee soft tissue infection (Acute) Subjective: Feeling better, leg pain controlled. No rash or SOB with abx. No fever. - Physical Exam General: Alert, Cooperative, No apparent distress Lungs: Clear to auscultation, Normal air movement Cardiovascular: Regular rate, Regular Rhythm Abdomen: Soft, Non Tender, Non-Distended Skin: No rashes, Incision - LLE wrapped Vital Signs Temp Pulse Resp BP Pulse Ox 98.2 F 83 18 124/82 H 98 03/25/18 07:41 03/25/18 07:41 03/25/18 07:41 03/25/18 07:41 03/25/18 07:41 Oxygen Flow Rate (L/min) 2 Oxygen Delivery Method Room Air Weight: 125.1 kg Body Mass Index (BMI) 36.3 Finger Stick Blood Glucose 119 Intake and Output for Last 24 Hours 03/23/18 03/24/18 03/25/18 23:59 23:59 23:59 Intake Total 5444 / 5444 1164 / 1164 Output Total 3210 / 3210 1500 / 1500 Balance 2234 / 2234 -336 / -336 Microbiology Past 72 Hours 03/24/18 Unknown Gram Stain - Final Incision/Surgical Site 03/24/18 Unknown Gram Stain - Final Aspirate - Knee Laboratory Tests Past 24 Hrs 03/24/18 03/24/18 03/24/18 23:03 Unknown Unknown WBC RBC Hgb Hct MCV MCH MCHC RDW RDW Differential Plt Count MPV Immature Gran % (Auto) Neut % (Auto) Lymph % (Auto) [place] % (Auto) Eos % (Auto) Baso % (Auto) Absolute Neuts (auto) Absolute Lymphs (auto) Total Counted Triglycerides Cholesterol LDL Cholesterol VLDL Cholesterol HDL Cholesterol Synovial Source LEFT KNEE Synovial Color Yellow Synovial Appearance Cloudy Synovial WBC 14.0680 H Synovial RBC 0.[address] H Synovial Tot Cell Ct 14.0700 H Synov Polynuclear WBCs 13.349 Synov Mononuclear WBCs 0.709 Synovial Neutrophils 93 H Synovial Lymphocytes 3 Synovial Monocytes 4 Synovial Polynuclear % 95.0 Synovial Mononuclear % 5.[address] Comment May follow Vancomycin Trough 19.4 H Miscellaneous Cytology Pending 03/25/18 03/25/18 05:58 05:58 WBC 11.8 H RBC 3.80 L Hgb 12.0 L Hct 36.1 L MCV 95.0 H MCH 31.6 MCHC 33.2 RDW 11.9 RDW Differential 40.5 Plt Count 300 MPV 9.8 Immature Gran % (Auto) 0.200 Neut % (Auto) 80.8 H Lymph % (Auto) 9.1 L [place] % (Auto) 9.7 Eos % (Auto) 0.1 Baso % (Auto) 0.1 Absolute Neuts (auto) 9.6 H Absolute Lymphs (auto) 1.08 Total Counted Not Reportable Triglycerides 113 Cholesterol 137 LDL Cholesterol 91 VLDL Cholesterol 23 HDL Cholesterol 23 L Synovial Source Synovial Color Synovial Appearance Synovial WBC Synovial RBC Synovial Tot Cell Ct Synov Polynuclear WBCs Synov Mononuclear WBCs Synovial Neutrophils Synovial Lymphocytes Synovial Monocytes Synovial Polynuclear % Synovial Mononuclear % Synovial Path Comment Vancomycin Trough Miscellaneous Cytology POC Glucose 03/24/18 03/24/18 18:45 13:01 POC Glucose 216 H 119 H Medical Necessity - Tobacco Use Smoking Status: Never smoker Route of nutrition/ use of supplements: [] Nutritional Intake: [] IV Site: [] Roberson Catheter: [] - Assessment/Plan Antibiotics: [] Assessment/Plan: [] Active and Suspected Problems Left knee septic arthritis (Acute) Left thigh/knee soft tissue infection (Acute) LLE infection s/p chainsaw accident and surgical debridement 03/19/18. Had been on clinda at home. Now s/p OR 03/[address] Scott for septic arthritis. Stop clinda. Continue vanc/zosyn, tolerating with no issues. Will follow
--- NOTE | 2018-03-25 11:33 | PN_ITS ---
Patient Problems: Active and Suspected Problems Left knee septic arthritis (Acute) Left thigh/knee soft tissue infection (Acute) Subjective: Post operative day #1 Day #2 antibiotics -vancomycin and Zosyn All events of the past 24 hours of been reviewed and all consultations. Afebrile today. Signs stable. 5-98% saturation on room air. White blood cell count today is 11.8 with 81% neutrophils. Hemoglobin is 12, down from 13.4 at admission and platelets are normal. LDL is 91 with an HDL of 23. Synovial fluid is cloudy with greater than 14,000 white blood cells and 7 RBCs. 93% neutrophils. Gram stain on the synovial fluid showed 4+ white blood cells with no organisms. Preliminary culture of the wound is growing a gram-negative sharif. He has been seen by Dr. Bingham today who recommends continuing vancomycin and Zosyn and awaiting cultures Pain is adequately controlled. He was questioning why he has to go to surgery to have the wound washed out and why we cannot just apply a wound VAC. I explained that he has a septic joint and the laceration and the joint are in [address] Scott plans on taking him to surgery tomorrow for wash out. May need a wound vac at [place]. Objective: - Physical Exam General: Alert, Oriented x3, Cooperative, No apparent distress HEENT: Atraumatic, PERRLA, EOMI, Normocephalic Oral: Moist Mucosa Neck: Supple, Trachea Midline Lungs: Clear to auscultation, No rhonchi, No wheeze, No rales Cardiovascular: Regular rate, Regular Rhythm, Normal S1, Normal S2, No murmurs, No Gallop Abdomen: Bowel Sounds Present, Soft, Non Tender, Non-Distended Extremities: No Calf Tenderness. Please see Dr. Scott's note for description of the wound today. Negative Homans sign and negative Ben. He has no pain in the groin and there are no enlarged lymph nodes. Skin: No rashes, No breakdown Musculoskeletal: No Muscle Wasting Neurological: Cranial nerves II-XII grossly intact, Neuro grossly intact Psych/Mental Status: Normal Affect, Appropriate - Physical Exam Vital Signs Temp Pulse Resp BP Pulse Ox 98.2 F 83 18 124/82 H 98 03/25/18 07:41 03/25/18 07:41 03/25/18 07:41 03/25/18 07:41 03/25/18 07:41 Oxygen Flow Rate (L/min) 2 Oxygen Delivery Method Room Air Weight: 275 lb 12.772 oz Body Mass Index (BMI) 36.3 Finger Stick Blood Glucose 119 Intake and Output for Last 24 Hours 03/23/18 03/24/18 03/25/18 23:59 23:59 23:59 Intake Total 5444 / 5444 1164 / 1164 Output Total 3210 / 3210 1500 / 1500 Balance 2234 / 2234 -336 / -336 Microbiology Past 72 Hours 03/24/18 Unknown Gram Stain - Final Incision/Surgical Site Wound Culture - Preliminary Gram negative sharif 03/24/18 Unknown Gram Stain - Final Aspirate - Knee Wound Culture - Preliminary No growth-Final to follow Laboratory Tests Past 24 Hrs 03/24/18 03/24/18 03/24/18 23:03 Unknown Unknown WBC RBC Hgb Hct MCV MCH MCHC RDW RDW Differential Plt Count MPV Immature Gran % (Auto) Neut % (Auto) Lymph % (Auto) [place] % (Auto) Eos % (Auto) Baso % (Auto) Absolute Neuts (auto) Absolute Lymphs (auto) Total Counted Triglycerides Cholesterol LDL Cholesterol VLDL Cholesterol HDL Cholesterol Synovial Source LEFT KNEE Synovial Color Yellow Synovial Appearance Cloudy Synovial WBC 14.0680 H Synovial RBC 0.[address] H Synovial Tot Cell Ct 14.0700 H Synov Polynuclear WBCs 13.349 Synov Mononuclear WBCs 0.709 Synovial Neutrophils 93 H Synovial Lymphocytes 3 Synovial Monocytes 4 Synovial Polynuclear % 95.0 Synovial Mononuclear % 5.[address] Comment May follow Vancomycin Trough 19.4 H Miscellaneous Cytology Pending 03/25/18 03/25/18 05:58 05:58 WBC 11.8 H RBC 3.80 L Hgb 12.0 L Hct 36.1 L MCV 95.0 H MCH 31.6 MCHC 33.2 RDW 11.9 RDW Differential 40.5 Plt Count 300 MPV 9.8 Immature Gran % (Auto) 0.200 Neut % (Auto) 80.8 H Lymph % (Auto) 9.1 L [place] % (Auto) 9.7 Eos % (Auto) 0.1 Baso % (Auto) 0.1 Absolute Neuts (auto) 9.6 H Absolute Lymphs (auto) 1.08 Total Counted Not Reportable Triglycerides 113 Cholesterol 137 LDL Cholesterol 91 VLDL Cholesterol 23 HDL Cholesterol 23 L Synovial Source Synovial Color Synovial Appearance Synovial WBC Synovial RBC Synovial Tot Cell Ct Synov Polynuclear WBCs Synov Mononuclear WBCs Synovial Neutrophils Synovial Lymphocytes Synovial Monocytes Synovial Polynuclear % Synovial Mononuclear % Synovial Path Comment Vancomycin Trough Miscellaneous Cytology POC Glucose 03/24/18 03/24/18 18:45 13:01 POC Glucose 216 H 119 H Medical Necessity - Tobacco Use Smoking Status: Never smoker Assessment/Plan All Active Problems Left knee septic arthritis (Acute) Left thigh/knee soft tissue infection (Acute) Impressions 1. cellulitis of the LLE due to infected laceration LLE due to recent Chainsaw accident with lacerated L quadriceps tendon - 2. Hyperglycemia likely secondary to acute infection with normal hemoglobin A1c of 5.3. There is no family history of diabetes mellitus. 3. Hyponatremia-resolved with IV fluids. 4. septic arthritis of the Left knee Continue antibiotics Wash out tomorrow DC the accuchecks because none > 180 and the HGBA1C is 5.3 Will continue to follow
[2018-03-25] MEDS: 0.9% Normal Saline 1,000 ML 150 ML IV (12:17)
[2018-03-25 13:06] LABS: Pathologist Comment Reviewed
--- NOTE | 2018-03-25 13:10 | CASEMGMT ---
See RN CM Assessment Link. DC PLAN: HOME -Continue to follow ID recommendations re: antibiotics on dc. No needs identified unless IV antibiotics are recommended. Mariola BASSN RN ACM
[2018-03-25 13:51] VITALS: BP 101/68; PULSE 97; RESP 18; TEMP 36.8; O2SAT 97
[2018-03-25 21:15] VITALS: BP 123/61; PULSE 90; RESP 16; TEMP 36.8; O2SAT 96
--- NOTE | 2018-03-25 23:56 | NURSING ---
Pt and state they would like a second opinion before going for his Debridement with Dr. Scott on 03/26. They specifically requested Dr. Segovia.
[2018-03-26] MEDS: 0.9% Normal Saline 1,000 ML 150 ML IV ×3 (00:06→20:26)
[2018-03-26 02:42] VITALS: BP 142/71; PULSE 91; RESP 16; TEMP 37.4; O2SAT 99
[2018-03-26] MEDS: Acetaminophen 500 MG Tablet 1000 MG PO ×3 (05:59→22:47)
[2018-03-26] MEDS: Piperacil/Tazobactam 3.375 GM/50 ML ML IV ×3 (05:59→22:46)
[2018-03-26] MEDS: Enoxaparin 40 MG/0.4 ML Syringe SC (05:59)
--- NOTE | 2018-03-26 07:55 | PCM.PN.ORT ---
Patient Problems: Active and Suspected Problems Left knee septic arthritis (Acute) Left thigh/knee soft tissue infection (Acute) Subjective: Patient's pain in his knee is improving. He denies any fevers or chills. Denies any chest pain or shortness of breath. He has been out of bed ambulating to use the bathroom and sitting at the bedside chair Objective: Erythema is improving. The swelling in his knee is improving. There is no drainage from the wound. Gentle range of motion from 0-20? is tolerable without much discomfort. Neurovascularly intact - Physical Exam Vital Signs Temp Pulse Resp BP Pulse Ox 99.4 F H 91 16 142/71 H 99 03/26/18 02:42 03/26/18 02:42 03/26/18 02:42 03/26/18 02:42 03/26/18 02:42 Oxygen Flow Rate (L/min) 2 Oxygen Delivery Method Room Air Weight: 275 lb 12.772 oz Body Mass Index (BMI) 36.3 Finger Stick Blood Glucose 119 Intake and Output for Last 24 Hours 03/24/18 03/25/18 03/26/18 23:59 23:59 23:59 Intake Total 5444 / 5444 93790 / 74180 2139 / 2139 Output Total 3210 / 3210 1900 / 1900 4200 / 4200 Balance 2234 / 2234 07813 / 93457 -2060 / Microbiology Past 72 Hours 03/24/18 Unknown Gram Stain - Final Incision/Surgical Site Wound Culture - Preliminary Gram negative sharif Anaerobic Culture - Preliminary Checking for anaerobes, further studies to follow. 03/24/18 Unknown Gram Stain - Final Aspirate - Knee Wound Culture - Preliminary No growth-Final to follow Laboratory Tests Past 24 Hrs 03/24/18 Unknown Synovial Path Comment Reviewed Medical Necessity - Tobacco Use Smoking Status: Never smoker Assessment/Plan All Active Problems Left knee septic arthritis (Acute) Left thigh/knee soft tissue infection (Acute) Plan: We will continue IV antibiotics. So far there is been no growth from the knee aspirate. Gram-negative rods from the wound are noted. With the patient's improvement from yesterday will allow him to have a regular diet today. Recommend continuing the IV antibiotics. Continue to monitor the knee aspirate cultures. Will keep him n.p.o. after midnight tonight and assess him once again tomorrow morning to be sure that this is continued to improve. Hopefully we will be able to transition him to p.o. antibiotics or IV antibiotics at home with the PICC line at some point. I do not feel that he requires an additional washout today as there has been some improvement. Will reassess once again tomorrow morning
--- NOTE | 2018-03-26 08:01 | PN.ORTHO_ITS ---
Patient Problems: Active and Suspected Problems Left knee septic arthritis (Acute) Left thigh/knee soft tissue infection (Acute) Subjective: Patient's pain in his knee is improving. He denies any fevers or chills. Denies any chest pain or shortness of breath. He has been out of bed ambulating to use the bathroom and sitting at the bedside chair Objective: Erythema is improving. The swelling in his knee is improving. There is no drainage from the wound. Gentle range of motion from 0-20? is tolerable without much discomfort. Neurovascularly intact - Physical Exam Vital Signs Temp Pulse Resp BP Pulse Ox 99.4 F H 91 16 142/71 H 99 03/26/18 02:42 03/26/18 02:42 03/26/18 02:42 03/26/18 02:42 03/26/18 02:42 Oxygen Flow Rate (L/min) 2 Oxygen Delivery Method Room Air Weight: 275 lb 12.772 oz Body Mass Index (BMI) 36.3 Finger Stick Blood Glucose 119 Intake and Output for Last 24 Hours 03/24/18 03/25/18 03/26/18 23:59 23:59 23:59 Intake Total 5444 / 5444 17023 / 38206 2139 / 2139 Output Total 3210 / 3210 1900 / 1900 4200 / 4200 Balance 2234 / 2234 82486 / 55437 -2060 / Microbiology Past 72 Hours 03/24/18 Unknown Gram Stain - Final Incision/Surgical Site Wound Culture - Preliminary Gram negative sharif Anaerobic Culture - Preliminary Checking for anaerobes, further studies to follow. 03/24/18 Unknown Gram Stain - Final Aspirate - Knee Wound Culture - Preliminary No growth-Final to follow Laboratory Tests Past 24 Hrs 03/24/18 Unknown Synovial Path Comment Reviewed Medical Necessity - Tobacco Use Smoking Status: Never smoker Assessment/Plan All Active Problems Left knee septic arthritis (Acute) Left thigh/knee soft tissue infection (Acute) Plan: We will continue IV antibiotics. So far there is been no growth from the knee aspirate. Gram-negative rods from the wound are noted. With the patient' s improvement from yesterday will allow him to have a regular diet today. Recommend continuing the IV antibiotics. Continue to monitor the knee aspirate cultures. Will keep him n.p.o. after midnight tonight and assess him once again tomorrow morning to be sure that this is continued to improve. Hopefully we will be able to transition him to p.o. antibiotics or IV antibiotics at home with the PICC line at some point. I do not feel that he requires an additional washout today as there has been some improvement. Will reassess once again tomorrow morning
[2018-03-26 09:13] VITALS: BP 130/88; PULSE 96; RESP 18; TEMP 36.9; O2SAT 98
[2018-03-26] MEDS: Aspirin E.C. 325 MG Tablet PO (09:20)
--- NOTE | 2018-03-26 10:14 | PCM.PROGNOTE ---
Patient Problems: Active and Suspected Problems Left knee septic arthritis (Acute) Left thigh/knee soft tissue infection (Acute) Subjective: Vanco and Zosyn Day #3 Afebrile. Vital signs are stable and pulse ox on room air is 98-99%. Pain is adequately controlled. Denies diarrhea. No mouth sores. No N/V Objective: PHYSICAL EXAM: GENERAL: alert, oriented X 3, Cooperative, NAD ORAL: moist mucosa, no mucosal lesions NECK: No JVD, supple, trachea midline LUNGS: CTA, symmetric chest expansion HEART: RRR, Normal S1 and S2, no rub, no gallop ABDOMEN: soft, NT, ND, BS present, no guarding with palpation EXTREMITIES: no edema, no cyanosis, no calf tenderness. The dressing was just changed by Dr. Scott......please see his dictation for the description of the wound. He told me that it looks good SKIN: No rashes, no breakdown NEUROLOGIC: no focal neurologic deficits PSYCH: appropriate, normal affect, pleasant - Physical Exam Vital Signs Temp Pulse Resp BP Pulse Ox 98.4 F 96 18 130/88 H 98 03/26/18 09:13 03/26/18 09:13 03/26/18 09:13 03/26/18 09:13 03/26/18 09:13 Oxygen Flow Rate (L/min) 2 Oxygen Delivery Method Room Air Weight: 275 lb 12.772 oz Body Mass Index (BMI) 36.3 Finger Stick Blood Glucose 119 Intake and Output for Last 24 Hours 03/24/18 03/25/18 03/26/18 23:59 23:59 23:59 Intake Total 5444 / 5444 16778 / 32385 2139 / 2139 Output Total 3210 / 3210 1900 / 1900 4200 / 4200 Balance 2234 / 2234 36351 / 45602 -206 / -2060 Microbiology Past 72 Hours 03/24/18 Unknown Gram Stain - Final Incision/Surgical Site Wound Culture - Preliminary Serratia marcescens Gram negative sharif Anaerobic Culture - Preliminary Checking for anaerobes, further studies to follow. 03/24/18 Unknown Gram Stain - Final Aspirate - Knee Wound Culture - Preliminary No growth-Final to follow Anaerobic Culture - Preliminary No growth in 48 hours. Laboratory Tests Past 24 Hrs 03/24/18 Unknown Synovial Path Comment Reviewed Medical Necessity - Tobacco Use Smoking Status: Never smoker Assessment/Plan All Active Problems Left knee septic arthritis (Acute) Left thigh/knee soft tissue infection (Acute) Impressions 1. cellulitis of the LLE due to infected laceration LLE due to recent Chainsaw accident with lacerated L quadriceps tendon - culture is positive for serratia marcesans 2. Hyperglycemia likely secondary to acute infection with normal hemoglobin A1c of 5.3. There is no family history of diabetes mellitus. 3. Hyponatremia-resolved with IV fluids. 4. septic arthritis of the Left knee - cultures are negative so far on the synovial fluid. Dr. Bingham to determine the antibiotics at [place]. Discussed with Dr. Scott. No need for washout today. will keep NPO again tonight and re-examine in the AM for need for wash out. No need for a wound vac as an OP Recheck a CBC with DIFF, BMP and ESR/CRP inn the AM Continue Enoxaparin for DVT prophylaxis May be able to discontinue the Vanco if the synovial fluid final is negative Code Visit Inpatient E&M: 36668 Subs Hosp L2
--- NOTE | 2018-03-26 10:23 | PN_ITS ---
Patient Problems: Active and Suspected Problems Left knee septic arthritis (Acute) Left thigh/knee soft tissue infection (Acute) Subjective: Vanco and Zosyn Day #3 Afebrile. Vital signs are stable and pulse ox on room air is 98-99%. Pain is adequately controlled. Denies diarrhea. No mouth sores. No N/V Objective: PHYSICAL EXAM: GENERAL: alert, oriented X 3, Cooperative, NAD ORAL: moist mucosa, no mucosal lesions NECK: No JVD, supple, trachea midline LUNGS: CTA, symmetric chest expansion HEART: RRR, Normal S1 and S2, no rub, no gallop ABDOMEN: soft, NT, ND, BS present, no guarding with palpation EXTREMITIES: no edema, no cyanosis, no calf tenderness. The dressing was just changed by Dr. Scott......please see his dictation for the description of the wound. He told me that it looks good SKIN: No rashes, no breakdown NEUROLOGIC: no focal neurologic deficits PSYCH: appropriate, normal affect, pleasant - Physical Exam Vital Signs Temp Pulse Resp BP Pulse Ox 98.4 F 96 18 130/88 H 98 03/26/18 09:13 03/26/18 09:13 03/26/18 09:13 03/26/18 09:13 03/26/18 09:13 Oxygen Flow Rate (L/min) 2 Oxygen Delivery Method Room Air Weight: 275 lb 12.772 oz Body Mass Index (BMI) 36.3 Finger Stick Blood Glucose 119 Intake and Output for Last 24 Hours 03/24/18 03/25/18 03/26/18 23:59 23:59 23:59 Intake Total 5444 / 5444 45195 / 22589 2139 / 2139 Output Total 3210 / 3210 1900 / 1900 4200 / 4200 Balance 2234 / 2234 82334 / 68303 -206 / -2060 Microbiology Past 72 Hours 03/24/18 Unknown Gram Stain - Final Incision/Surgical Site Wound Culture - Preliminary Serratia marcescens Gram negative sharif Anaerobic Culture - Preliminary Checking for anaerobes, further studies to follow. 03/24/18 Unknown Gram Stain - Final Aspirate - Knee Wound Culture - Preliminary No growth-Final to follow Anaerobic Culture - Preliminary No growth in 48 hours. Laboratory Tests Past 24 Hrs 03/24/18 Unknown Synovial Path Comment Reviewed Medical Necessity - Tobacco Use Smoking Status: Never smoker Assessment/Plan All Active Problems Left knee septic arthritis (Acute) Left thigh/knee soft tissue infection (Acute) Impressions 1. cellulitis of the LLE due to infected laceration LLE due to recent Chainsaw accident with lacerated L quadriceps tendon - culture is positive for serratia marcesans 2. Hyperglycemia likely secondary to acute infection with normal hemoglobin A1c of 5.3. There is no family history of diabetes mellitus. 3. Hyponatremia-resolved with IV fluids. 4. septic arthritis of the Left knee - cultures are negative so far on the synovial fluid. Dr. Bnigham to determine the antibiotics at [place]. Discussed with Dr. Scott. No need for washout today. will keep NPO again tonight and re-examine in the AM for need for wash out. No need for a wound vac as an OP Recheck a CBC with DIFF, BMP and ESR/CRP inn the AM Continue Enoxaparin for DVT prophylaxis May be able to discontinue the Vanco if the synovial fluid final is negative Code Visit Inpatient E&M: 94522 Subs Hosp L2
--- NOTE | 2018-03-26 14:06 | PCM.PN.ID ---
Patient Problems: Active and Suspected Problems Left knee septic arthritis (Acute) Left thigh/knee soft tissue infection (Acute) Subjective: Feeling better, no fever, mild LLE pain. - Physical Exam General: Alert, Cooperative, No apparent distress Lungs: Clear to auscultation, Normal air movement Cardiovascular: Regular rate, Regular Rhythm Abdomen: Soft, Non Tender, Non-Distended Skin: Incision - LLE wrapped Vital Signs Temp Pulse Resp BP Pulse Ox 98.4 F 96 18 130/88 H 98 03/26/18 09:13 03/26/18 09:13 03/26/18 09:13 03/26/18 09:13 03/26/18 09:13 Oxygen Flow Rate (L/min) 2 Oxygen Delivery Method Room Air Weight: 125.1 kg Body Mass Index (BMI) 36.3 Finger Stick Blood Glucose 119 Intake and Output for Last 24 Hours 03/24/18 03/25/18 03/26/18 23:59 23:59 23:59 Intake Total 5444 / 5444 39633 / 94941 2139 / 2139 Output Total 3210 / 3210 1900 / 1900 4575 / 4575 Balance 2234 / 2234 92333 / 72161 -2436 / -2436 Microbiology Past 72 Hours 03/24/18 Unknown Gram Stain - Final Aspirate - Knee Wound Culture - Preliminary No growth-Final to follow Anaerobic Culture - Preliminary No growth in 48 hours. 03/24/18 Unknown Gram Stain - Final Incision/Surgical Site Wound Culture - Preliminary Serratia marcescens Gram negative sharif Anaerobic Culture - Preliminary Checking for anaerobes, further studies to follow. Medical Necessity - Tobacco Use Smoking Status: Never smoker Route of nutrition/ use of supplements: [] Nutritional Intake: [] IV Site: [] Roberson Catheter: [] - Assessment/Plan Antibiotics: [] Assessment/Plan: [] Active and Suspected Problems Left knee septic arthritis (Acute) Left thigh/knee soft tissue infection (Acute) LLE infection s/p chainsaw accident and surgical debridement 03/19/18. Had been on clinda at home. Now s/p OR 03/[address] Scott for debridement. Continue zosyn, tolerating with no issues. Will stop vanc with no growth of GPC and neg MRSA pcr. Will follow
[2018-03-26 15:13] VITALS: BP 143/81; PULSE 105; RESP 18; TEMP 36.8; O2SAT 98
[2018-03-26 20:09] VITALS: BP 148/88; PULSE 98; RESP 15; TEMP 37.2; O2SAT 97
[2018-03-26 21:00] VITALS: PULSE 98; RESP 15; O2SAT 97
[2018-03-27 03:00] VITALS: RESP 15
[2018-03-27 03:10] VITALS: BP 131/78; PULSE 85; RESP 15; TEMP 37.3; O2SAT 96
[2018-03-27] MEDS: Acetaminophen 500 MG Tablet 1000 MG PO (07:09)
[2018-03-27 07:16] LABS: Anion Gap 7 (5-15); BUN 10 mg/dL (7-18); Calcium,Total 8.6 mg/dL (8.5-10.1); Chloride 105 mmol/L (98-107); Creatinine, Serum 0.71 mg/dL (0.70-1.30); EST Glomerular Filtration Rate 126 mL/min (>60); Est Glom Filt Rate - Afr Amer 153 mL/min (>60); Estimated Creatinine Clearance 148.48 ml/min; Glucose 98 mg/dL (74-106); Sodium Level 138 mmol/L (136-145)
[2018-03-27 07:19] LABS: Absolute Lymphocyte Count 1.29 X10^3/ul (0.83-4.51); Absolute Neutrophil Count 7.5 X10^3/uL (2.0-7.7); Basophil# 0.03 X10^3/uL; Basophil% 0.3 % (0-1); Eosinophil# 0.28 X10^3/uL; Eosinophils% 2.6 % (0-5); Hematocrit 37.5 % (40-54); Hemoglobin 12.3 g/dl (13.0-16.5); Lymphocyte # 1.29 X10^3/ul (4.0); Lymphocyte % 12.1 % (19-41); Mean Corp Hgb Conc 32.8 g/gl (32-36); Mean Corpuscular Hgb 30.8 pg (27.0-32.0); Mean Platelet Vol. 9.3 fl (6.2-12.0); Monocyte# 1.52 X10^3/uL; Monocyte% 14.2 % (0-10); Neutrophil % 70.2 % (47-70); Platelet Count 386 K/mm3 (150-450); RBC Distribution Width CV 12.4 % (11.6-14.6); RBC Distribution Width SD 42.5 fl (35.1-43.9); Red Blood Count 3.99 M/mm3 (4.6-6.2); White Blood Count 10.7 K/mm3 (4.4-11.0)
[2018-03-27 07:22] LABS: Differential Indicated SCAN CRITERIA MET; POSITIVE COUNT NO; POSITIVE DIFFERENTIAL YES; POSITIVE MORPHOLOGY NO
[2018-03-27] MEDS: Piperacil/Tazobactam 3.375 GM/50 ML ML IV (07:31)
[2018-03-27 07:47] LABS: Differential Comment SCANNED; Erythrocyte Sedimentation Rate 104 mm/hr (0-15)
[2018-03-27 07:50] VITALS: BP 131/76; PULSE 102; RESP 16; TEMP 37.1; O2SAT 97
[2018-03-27] MEDS: Enoxaparin 40 MG/0.4 ML Syringe SC (08:02)
[2018-03-27] MEDS: Aspirin E.C. 325 MG Tablet PO (08:02)
--- NOTE | 2018-03-27 08:03 | PCM.PN.ORT ---
Patient Problems: Active and Suspected Problems Left knee septic arthritis (Acute) Left thigh/knee soft tissue infection (Acute) Subjective: Patient's pain continues to improve. He denies any fevers or chills Objective: No drainage from the incision is noted. 1+ knee effusion. Slight erythema however this is improving. Kortney are in place. Neurovascularly intact. No calf pain - Physical Exam Vital Signs Temp Pulse Resp BP Pulse Ox 98.8 F 102 H 16 131/76 H 97 03/27/18 07:50 03/27/18 07:50 03/27/18 07:50 03/27/18 07:50 03/27/18 07:50 Oxygen Flow Rate (L/min) 2 Oxygen Delivery Method Room Air Weight: 275 lb 12.772 oz Body Mass Index (BMI) 36.3 Finger Stick Blood Glucose 119 Intake and Output for Last 24 Hours 03/25/18 03/26/18 03/27/18 23:59 23:59 23:59 Intake Total 36350 / 70680 2739 / 2739 1634 / 1634 Output Total 1900 / 1900 5425 / 5425 2920 / 2920 Balance 06495 / 01809 -2686 / -2686 -1286 / -1286 Microbiology Past 72 Hours 03/24/18 Unknown Gram Stain - Final Incision/Surgical Site Wound Culture - Final Serratia marcescens Klebsiella oxytoca Enterobacter cloacae complex Anaerobic Culture - Preliminary Checking for anaerobes, further studies to follow. 03/24/18 Unknown Gram Stain - Final Aspirate - Knee Wound Culture - Preliminary No growth-Final to follow Anaerobic Culture - Preliminary No growth in 48 hours. Laboratory Tests Past 24 Hrs 03/24/18 03/27/18 03/27/18 Unknown 06:00 06:00 WBC 10.7 RBC 3.99 L Hgb 12.3 L Hct 37.5 L MCV 94.0 MCH 30.8 MCHC 32.8 RDW 12.4 RDW Differential 42.5 Plt Count 386 MPV 9.3 Immature Gran % (Auto) 0.600 Neut % (Auto) 70.2 H Lymph % (Auto) 12.1 L [place] % (Auto) 14.2 H Eos % (Auto) 2.6 Baso % (Auto) 0.3 Absolute Neuts (auto) 7.5 Absolute Lymphs (auto) 1.29 Total Counted Not Reportable Differential Comment SCANNED ESR 104 H Sodium 138 Potassium 4.0 Chloride 105 Carbon Dioxide 26.0 Anion Gap 7 BUN 10 Creatinine 0.71 Estim Creat Clear Calc 148.48 Est GFR (MDRD) Af Amer 153 Est GFR (MDRD) Non-Af 126 BUN/Creatinine Ratio 14.0 Glucose 98 Calcium 8.6 C-React Prot Ext Range 157.00 H Miscellaneous Cytology SEE PATHOLOGY REPORT Medical Necessity - Tobacco Use Smoking Status: Never smoker Assessment/Plan All Active Problems Left knee septic arthritis (Acute) Left thigh/knee soft tissue infection (Acute) There is still been no growth from the intra-articular aspiration. Wound cultures have revealed 3 different organisms. This is actually surprising to me as from clinical standpoint the aspirate was grossly purulent when obtained and the wound actually appeared quite clean. I am curious as to if the specimens may have been mislabeled either in the operating room or in the lab. I still feel that the patient should be treated as if this is septic arthritis. Seen that we have identified organisms I am hopeful that the patient will be able to go home with either oral or IV antibiotics. I did speak with infectious disease on-call and also with Dr. Webb. Given the fact that I have high suspicion that this is septic arthritis I do feel that the patient should continue IV antibiotics. The hospitalist will discuss with infectious disease further and assist with discharge
--- NOTE | 2018-03-27 08:23 | PCM.DC.ORTHO ---
Discharge Diet: No Restrictions Discharge Activity: May Shower - Patient must sit and Leg must be kept straight Weight Bearing Status: Weight bearing as tolerated - with knee immobilizer and crutches Call your doctor if your incision/area has: Continuous Slow Oozing, Sudden Increased Bleeding, Increased Pain/ Swelling, Increased Redness, Foul Smelling Discharge Call your doctor if you observe: Fever of 101 or Higher, Coldness, Increased Pain, Numbness or Tingling, Change in Color Cleanse incision/area with: Soap & Water Allergies/Adverse Reactions: Allergies morphine Allergy (Verified 03/23/18 22:04) Rash reaction noted in er after administration, was added to allergy list after benadryl Penicillins [PCN] Allergy (Verified 03/23/18 22:04) Unknown Medications to take at Discharge Acetaminophen [Tylenol Extra Strength] 500 mg PO Q8 14 Days #90 tab 03/20/18 Oxycodone [Oxyir] 5 mg PO Q6H PRN PRN 7 Days #60 tab 03/20/18 Aspirin E.C. [Ecotrin] 325 mg PO DAILY@0800 03/24/18 Clindamycin HCl [Cleocin HCl] 300 mg PO Q8H 03/24/18 Primary Care Physician: Stan Noland, [facility] [Primary Care Provider] - Please follow up with your Primary Care Physician in: next week Please Follow Up With: Néstor Scott DO When: next week
--- NOTE | 2018-03-27 09:47 | PCM.DC ---
- Discharge Diagnoses Current Active Problems: Current Active and Chronic Problems Left knee septic arthritis (Acute) Left thigh/knee soft tissue infection (Acute) Recent lacerated wound of left knee (Chronic) You will use the following diet at home:: No restrictions, High fiber, Other - weight reduction is advised. There is a program at the hospital called [facility] that is run by the dieticians that provides excellent advice on meal planning for people wanting to lose weight. Your food should be the consistency of: Regular Your liquids should be the consistency of: Regular/Thin Discharge Activity: May Shower - Patient must sit and Leg must be kept straight Weight Bearing Status: Weight bearing as tolerated - with knee immobilizer and crutches Call your doctor if your incision/area has: Continuous Slow Oozing, Sudden Increased Bleeding, Increased Pain/ Swelling, Increased Redness, Foul Smelling Discharge Call your doctor if you observe: Fever of 101 or Higher, Coldness, Increased Pain, Numbness or Tingling, Change in Color, - - Call your PCP if severe diarrhea, painful sores in the mouth, painful swallowing, rash or itching. Cleanse incision/area with: Soap & Water Additional Instructions: 1. I am giving you a prescription for a probiotic to help with the loose stool while you are on antibiotics. Take one 3 times a day with meals. 2. Elevate your left leg anytime you are sitting in a chair. 3. Make sure to take ALL of the antibiotics given to you.......if you do not the infection may come back and it will learn to be resistant to the antibiotics you were taking. 4. there was no bacteria growing in the fluid removed from the knee but, this does not mean there was not infection there........if the knee becomes more swollen, more painful, more red or you have fevers > 100.[address] Scott or return to the ER. 5. Because you will be more sedentary than usual and you are over weight you are at increased risk for blood clots. I am going to have you take one 325mg Aspirin twice a day with food to prevent blood clots. Pending Tests on Discharge: final on the synovial fluid culture Allergies/Adverse Reactions: Allergies morphine Allergy (Verified 03/23/18 22:04) Rash reaction noted in er after administration, was added to allergy list after benadryl Penicillins [PCN] Allergy (Verified 03/23/18 22:04) Unknown Medications to take at Discharge Acetaminophen [Tylenol Extra Strength] 500 mg PO Q8 14 Days #90 tab 03/20/18 Oxycodone [Oxyir] 5 mg PO Q6H PRN PRN 7 Days #60 tab 03/20/18 Aspirin E.C. [Ecotrin] 325 mg PO BID tablet 03/27/18 Lactobacillus Acidophilus [Probiotic Acidophilus] 1 ea PO TID #60 tab 03/27/18 Levofloxacin [Levaquin] 500 mg PO DAILY #14 tab 03/27/18 Metronidazole [Flagyl] 500 mg PO TID #42 tab 03/27/18 The following prescriptions were given: Levofloxacin [Levaquin] 500 mg PO DAILY #14 tab Lactobacillus Acidophilus [Probiotic Acidophilus] 1 ea PO TID #60 tab Metronidazole [Flagyl] 500 mg PO TID #42 tab Primary Care Physician: Stan Noland, [facility] [Primary Care Provider] - Please follow up with your Primary Care Physician in: next week Please Follow Up With: Néstor Scott DO When: next week Proposed Discharge Date: 03/27/18
--- NOTE | 2018-03-27 10:05 | PCM.DC.SUM ---
Discharge Date and Diagnosis - Problem List Patient Problems: Active and Suspected Problems Hyperglycemia (Acute) Hyponatremia (Acute) Laceration of left knee with complication (Acute) Septic arthritis of knee, left (Acute) Contact with chainsaw as cause of accidental injury (Acute) Cellulitis of left knee (Acute) Date of Admission: 03/24/18 Date of Discharge: 03/27/18 - Primary Discharge Diagnosis Active and Suspected Problems Septic arthritis of knee, left (Acute) Cellulitis of left knee (Acute) due to Serratia marcescens, Klebsiella oxytoca, Enterobacter cloacae Contact with chainsaw as cause of accidental injury (Acute) - 03/19/18 Laceration of left knee with quadriceps tendon tear (Acute) - laceration was 03/19/18 and was repaired by Dr. Scott Hyperglycemia (Acute) Hyponatremia (Acute) - Secondary Discharge Diagnosis Chronic Problems Obesity (Chronic) Hospital Course and Treatment Imaging Results: Clinical Impression(s) from Imaging Studies Knee X-Ray 03/23/18 22:31 IMPRESSION: Anterior soft tissue edema and postsurgical changes of the knee with multiple gogo. Subcutaneous gas droplets in the distal thigh soft tissues anteriorly. Electronically Signed: Garrison Sanford DO at 23:08 EDT Tel [phone], Service support , Chest X-Ray 03/23/18 22:50 IMPRESSION: Cardiomegaly. Electronically Signed: Garrison Sanford DO at 23:00 EDT Tel [phone], Service support , Microbiology 03/24/18 Unknown Incision/Surgical Site Gram Stain - Final 03/24/18 Unknown Incision/Surgical Site Wound Culture - Final Serratia marcescens Klebsiella oxytoca Enterobacter cloacae complex 03/24/18 Unknown Incision/Surgical Site Anaerobic Culture - Final No anaerobic bacteria isolated. 03/23/18 22:35 Blood Culture (Wb) - Anticubital Right Blood Culture - Preliminary No growth in 48 hours. 03/23/18 22:35 Blood Culture (Wb) - Anticubital Left Blood Culture - Preliminary No growth in 48 hours. 03/24/18 Unknown Aspirate - Knee Gram Stain - Final 03/24/18 Unknown Aspirate - Knee Wound Culture - Preliminary No growth-Final to follow 03/24/18 Unknown Aspirate - Knee Anaerobic Culture - Preliminary No growth in 48 hours. PATHOLOGY on synovial fluid -negative for malignant cells positive acute inflammation, , special stains for acid-fast bacilli and fungi are negative hospitalist service Operations: None Procedures: - - Aspiration of left knee, left knee arthroscopy with extensive synovectomy and left knee wound irrigation and debridement on 03/[address] Scott Summary of Care Provided: Patient is a 47-year-old male who recently suffered a chain saw accident on 03/19/18 lacerating his lower extremity above the knee, including the quadriceps tendon. He was seen by Dr. Néstor Scott and had irrigation and debridement and a primary repair of the quadriceps tendon. He was placed on Cleocin prophylactically at discharge. He came to the emergency room at [facility] on 03/24/2018 complaining of fevers to 103?F. Temperature in the emergency room was 100.6?F. Pulse rate was 136 and the blood pressure was 117/73. He was 97% saturated on room air with a respiratory rate of 17. White blood cell count was 9.7 with 77.4% neutrophils. ESR was 111 and the CRP was 273. Blood glucose was elevated at 154 but hemoglobin A1c was 5.3. PT was within normal limits. Sodium was mildly decreased at 134. Blood cultures were sent. He was started on Aztreonam, clindamycin and vancomycin. Consultation was ordered with Dr. Bingham from infectious disease. He was taken to surgery by Dr. Scott on 03/28 knee arthroscopy with aspiration of the left knee and extensive synovectomy with wound irrigation and debridement. Cultures of the wound taken at the time of surgery grew Serratia marcescens, Klebsiella E oxytoca and Enterobacter cloacae. The synovial fluid has no growth at 48 hours. Blood cultures had no growth. He was examined on , and by Dr. Néstor Scott and there was no need for further irrigation. On 03/27/2018 he was afebrile with stable vital signs. The white blood cell count was 10.7 with 70% neutrophils. Hemoglobin was stable and the platelets were within normal limits. The ESR was 104, down from 111 at admission. CRP was 157, down from 273 at admission. A lipid panel during his admission drawn because of obesity showed a total cholesterol of 137 with an LDL of 91 and an HDL of 23. BMP on the date of discharge was within normal limits. Per Dr. Bingham he was discharged on Levaquin 500 mg p.o. daily ?14 days and Flagyl 500 mg p.o. 3 times daily ?14 days. He was given a prescription for lactobacillus and will take 1 capsule 3 times daily with meals until he is off antibiotics. He was given a prescription for OxyIR by Dr. Scott and will follow up with Dr. Scott in the office in 1 week. He will also follow-up with his primary care physician, Dr. Stan Noland in 1 week. He was instructed to return to the emergency room or call Dr. Scott if he should have increased pain in his left knee, increased erythema, increased swelling or fevers greater than 100.9?F. He has a walker at home to assist with ambulation and partial weightbearing. Discharge Diet: No Restrictions Discharge Activity: May Shower - Patient must sit and Leg must be kept straight Weight Bearing Status: Weight bearing as tolerated - with knee immobilizer and crutches Call your doctor if your incision/area has: Continuous Slow Oozing, Sudden Increased Bleeding, Increased Pain/ Swelling, Increased Redness, Foul Smelling Discharge Call your doctor if you observe: Fever of 101 or Higher, Coldness, Increased Pain, Numbness or Tingling, Change in Color, - - Call your PCP if severe diarrhea, painful sores in the mouth, painful swallowing, rash or itching. Cleanse incision/area with: Soap & Water Home Medications: Medications to take at Discharge Acetaminophen [Tylenol Extra Strength] 500 mg PO Q8 14 Days #90 tab 03/20/18 Oxycodone [Oxyir] 5 mg PO Q6H PRN PRN 7 Days #60 tab 03/20/18 Aspirin E.C. [Ecotrin] 325 mg PO BID tablet 03/27/18 Lactobacillus Acidophilus [Probiotic Acidophilus] 1 ea PO TID #60 tab 03/27/18 Levofloxacin [Levaquin] 500 mg PO DAILY #14 tab 03/27/18 Metronidazole [Flagyl] 500 mg PO TID #42 tab 03/27/18 Following Prescrptions Were Given to Patient: Levofloxacin [Levaquin] 500 mg PO DAILY #14 tab Lactobacillus Acidophilus [Probiotic Acidophilus] 1 ea PO TID #60 tab Metronidazole [Flagyl] 500 mg PO TID #42 tab Primary Care Physician: Stan Noland, [employer] SAL[employer]ERSON-[employer] [Primary Care Provider] - Please follow up with your Primary Care Physician in: next week Please Follow Up With: Néstor Scott DO When: next week Disposition: Home Minutes spent on discharge:: 30 Patient Condition:: Good Medical Necessity - Tobacco Use Smoking Status: Never smoker Meaningful Use Info Meaningful Use Diagnoses (Choose all that apply): None applicable Code Visit Inpatient E&M: 02459 Disch Hosp
--- NOTE | 2018-03-27 10:13 | DS.PCM_ITS ---
Discharge Date and Diagnosis - Problem List Patient Problems: Active and Suspected Problems Hyperglycemia (Acute) Hyponatremia (Acute) Laceration of left knee with complication (Acute) Septic arthritis of knee, left (Acute) Contact with chainsaw as cause of accidental injury (Acute) Cellulitis of left knee (Acute) Date of Admission: 03/24/18 Date of Discharge: 03/27/18 - Primary Discharge Diagnosis Active and Suspected Problems Septic arthritis of knee, left (Acute) Cellulitis of left knee (Acute) due to Serratia marcescens, Klebsiella oxytoca, Enterobacter cloacae Contact with chainsaw as cause of accidental injury (Acute) - 03/19/18 Laceration of left knee with quadriceps tendon tear (Acute) - laceration was and was repaired by Dr. Scott Hyperglycemia (Acute) Hyponatremia (Acute) - Secondary Discharge Diagnosis Chronic Problems Obesity (Chronic) Hospital Course and Treatment Imaging Results: Clinical Impression(s) from Imaging Studies Knee X-Ray 03/23/18 22:31 IMPRESSION: Anterior soft tissue edema and postsurgical changes of the knee with multiple gogo. Subcutaneous gas droplets in the distal thigh soft tissues anteriorly. Electronically Signed: Garrison Sanford DO at 23:08 EDT Tel [phone], Service support , Chest X-Ray 03/23/18 22:50 IMPRESSION: Cardiomegaly. Electronically Signed: Garrison Sanford DO at 23:00 EDT Tel [phone], Service support , Microbiology 03/24/18 Unknown Incision/Surgical Site Gram Stain - Final 03/24/18 Unknown Incision/Surgical Site Wound Culture - Final Serratia marcescens Klebsiella oxytoca Enterobacter cloacae complex 03/24/18 Unknown Incision/Surgical Site Anaerobic Culture - Final No anaerobic bacteria isolated. 03/23/18 22:35 Blood Culture (Wb) - Anticubital Right Blood Culture - Preliminary No growth in 48 hours. 03/23/18 22:35 Blood Culture (Wb) - Anticubital Left Blood Culture - Preliminary No growth in 48 hours. 03/24/18 Unknown Aspirate - Knee Gram Stain - Final 03/24/18 Unknown Aspirate - Knee Wound Culture - Preliminary No growth-Final to follow 03/24/18 Unknown Aspirate - Knee Anaerobic Culture - Preliminary No growth in 48 hours. PATHOLOGY on synovial fluid -negative for malignant cells positive acute inflammation, , special stains for acid-fast bacilli and fungi are negative hospitalist service Operations: None Procedures: - - Aspiration of left knee, left knee arthroscopy with extensive synovectomy and left knee wound irrigation and debridement on 03/[address] Scott Summary of Care Provided: Patient is a 47-year-old male who recently suffered a chain saw accident on 03/19/18 lacerating his lower extremity above the knee, including the quadriceps tendon. He was seen by Dr. Néstor Scott and had irrigation and debridement and a primary repair of the quadriceps tendon. He was placed on Cleocin prophylactically at discharge. He came to the emergency room at [facility] on 03/24/2018 complaining of fevers to 103?F. Temperature in the emergency room was 100.6?F. Pulse rate was 136 and the blood pressure was 117/73. He was 97% saturated on room air with a respiratory rate of 17. White blood cell count was 9.7 with 77.4% neutrophils. ESR was 111 and the CRP was 273. Blood glucose was elevated at 154 but hemoglobin A1c was 5.3. PT was within normal limits. Sodium was mildly decreased at 134. Blood cultures were sent. He was started on Aztreonam, clindamycin and vancomycin. Consultation was ordered with Dr. Bingham from infectious disease. He was taken to surgery by Dr. Scott on 03/28 knee arthroscopy with aspiration of the left knee and extensive synovectomy with wound irrigation and debridement. Cultures of the wound taken at the time of surgery grew Serratia marcescens, Klebsiella E oxytoca and Enterobacter cloacae. The synovial fluid has no growth at 48 hours. Blood cultures had no growth. He was examined on , and by Dr. Néstor Scott and there was no need for further irrigation. On 03/27/2018 he was afebrile with stable vital signs. The white blood cell count was 10.7 with 70% neutrophils. Hemoglobin was stable and the platelets were within normal limits. The ESR was 104, down from 111 at admission. CRP was 157, down from 273 at admission. A lipid panel during his admission drawn because of obesity showed a total cholesterol of 137 with an LDL of 91 and an HDL of 23. BMP on the date of discharge was within normal limits. Per Dr. Bingham he was discharged on Levaquin 500 mg p.o. daily ?14 days and Flagyl 500 mg p.o. 3 times daily ?14 days. He was given a prescription for lactobacillus and will take 1 capsule 3 times daily with meals until he is off antibiotics. He was given a prescription for OxyIR by Dr. Scott and will follow up with Dr. Scott in the office in 1 week. He will also follow-up with his primary care physician, Dr. Stan Noland in 1 week. He was instructed to return to the emergency room or call Dr. Scott if he should have increased pain in his left knee, increased erythema, increased swelling or fevers greater than 100.9?F. He has a walker at home to assist with ambulation and partial weightbearing. Discharge Diet: No Restrictions Discharge Activity: May Shower - Patient must sit and Leg must be kept straight Weight Bearing Status: Weight bearing as tolerated - with knee immobilizer and crutches Call your doctor if your incision/area has: Continuous Slow Oozing, Sudden Increased Bleeding, Increased Pain/ Swelling, Increased Redness, Foul Smelling Discharge Call your doctor if you observe: Fever of 101 or Higher, Coldness, Increased Pain, Numbness or Tingling, Change in Color, - - Call your PCP if severe diarrhea, painful sores in the mouth, painful swallowing, rash or itching. Cleanse incision/area with: Soap & Water Home Medications: Medications to take at Discharge Acetaminophen [Tylenol Extra Strength] 500 mg PO Q8 14 Days #90 tab 03/20/18 Oxycodone [Oxyir] 5 mg PO Q6H PRN PRN 7 Days #60 tab 03/20/18 Aspirin E.C. [Ecotrin] 325 mg PO BID tablet 03/27/18 Lactobacillus Acidophilus [Probiotic Acidophilus] 1 ea PO TID #60 tab 03/27/18 Levofloxacin [Levaquin] 500 mg PO DAILY #14 tab 03/27/18 Metronidazole [Flagyl] 500 mg PO TID #42 tab 03/27/18 Following Prescrptions Were Given to Patient: Levofloxacin [Levaquin] 500 mg PO DAILY #14 tab Lactobacillus Acidophilus [Probiotic Acidophilus] 1 ea PO TID #60 tab Metronidazole [Flagyl] 500 mg PO TID #42 tab Primary Care Physician: Stan Noland, CERTIFIED HOME HEALTH AIDE-C [Primary Care Provider] - Please follow up with your Primary Care Physician in: next week Please Follow Up With: Néstor Scott DO When: next week Disposition: Home Minutes spent on discharge:: 30 Patient Condition:: Good Medical Necessity - Tobacco Use Smoking Status: Never smoker Meaningful Use Info Meaningful Use Diagnoses (Choose all that apply): None applicable Code Visit Inpatient E&M: 59453 Disch Hosp
== END 2018-03-27 12:59 | disposition home or self-care (01) | DRG 486 ==
LOC: ED 22:35 → MS2 03-24 01:09 → MS3 03-26 17:12
PROVIDERS: Internal Medicine; Orthopaedic Surgery; Admitting Provider Orthopaedic Surgery; Emergency Provider Emergency Medicine; Family Provider Nurse Practitioner Family; PCP Nurse Practitioner Family; Visit Provider Internal Medicine
PROC: 0SBD4ZZ Excision of Left Knee Joint, Percutaneous Endoscopic Approach (ICD-10-PCS; CPT 29870; principal; 2018-03-24 07:10)
DX: M00.862 Arthritis due to other bacteria, left knee (principal); L03.116 Cellulitis of left lower limb; E87.1 Hypo-osmolality and hyponatremia; R73.9 Hyperglycemia, unspecified; B96.89 Other specified bacterial agents as the cause of diseases classified elsewhere; S81.012A Laceration without foreign body, left knee, initial encounter; W29.3XXA Contact with powered garden and outdoor hand tools and machinery, initial encounter; E66.9 Obesity, unspecified; Z68.36 Body mass index [BMI] 36.0-36.9, adult
CPT/HCPCS: 36415; 71045; 73560; 80048; 80053; 80061; 80202; 82962; 83036; 83605; 85025; 85610; 85652; 85730; 86140; 87040; 87070; 87075; 87077; 87186; 87205; 87641; 88108; 88305; 88312; 88313; 89050; 89051; 97116; 97162; 97530; 97802; 99285; J7030; J7040; A4216; J2405

== ENCOUNTER → 2019-07-04 12:38 | Outpatient (CLI) | payer OTHER, SELFPAY ==
[2018-03-24 10:22] VITALS: BMI 36.3
[2019-07-04 13:55] LABS: Hematocrit 43.3 % (40-54); Hemoglobin 14.4 g/dL (13.0-16.5); Mean Corp Hgb Conc 33.3 g/dL (32-36); Mean Corpuscular Hgb 30.4 pg (27.0-32.0); Mean Corpuscular Volume 91.4 fL (80-94); Mean Platelet Vol. 9.4 fl (6.2-12.0); Platelet Count 280 K/mm3 (150-450); RBC Distribution Width CV 11.8 % (11.6-14.6); RBC Distribution Width SD 39.3 fl (35.1-43.9); Red Blood Count 4.74 M/mm3 (4.6-6.2); White Blood Count 7.2 K/mm3 (4.4-11.0)
[2019-07-04 14:12] LABS: Erythrocyte Sedimentation Rate 35 mm/hr (0-15)
[2019-07-04 14:18] LABS: ALB/GLOB Ratio 0.9 RATIO (0.9-2.4); AST(SGOT) 13 U/L (15-37); Alanine Aminotransfer ALT/SGPT 24 U/L (16-61); Albumin, Serum 3.7 g/dL (3.2-5.0); Alkaline Phosphatase 90 U/L (45-117); Anion Gap 6 (5-15); BUN 13 mg/dL (7-18); CPK Total, Creatine Kinase 110 U/L (39-308); Calcium,Total 8.9 mg/dL (8.5-10.1); Chloride 107 mmol/L (98-107); Creatinine, Serum 0.87 mg/dL (0.70-1.30); EST Glomerular Filtration Rate 100 mL/min (>60); Est Glom Filt Rate - Afr Amer 121 mL/min (>60); Globulin 4.1 g/dL (2.2-4.2); Glucose 94 mg/dL (74-106); Potassium 3.8 mmol/L (3.5-5.1); Protein, Total 7.8 g/dL (6.4-8.2); Rheumatoid Factor < 10.0 IU/mL (<15); Sodium Level 140 mmol/L (136-145); T4 Free Direct 1.09 ng/dL (0.76-1.46); Thyroid Stim Hormone (TSH) 2.07 uIU/mL (0.358-3.74); Uric Acid 5.6 mg/dL (3.5-7.2)
[2019-07-05 15:59] LABS: ANTINUCLEAR ANTIBODIES DIRECT Negative (Negative)
[2019-07-07 03:06] LABS: Lyme IgG P18 Ab Present (.); Lyme IgG P23 Ab Absent (.); Lyme IgG P28 Ab Present (.); Lyme IgG P30 Ab Absent (.); Lyme IgG P39 Ab Present (.); Lyme IgG P41 Ab Present (.); Lyme IgG P45 Ab Absent (.); Lyme IgG P58 Ab Absent (.); Lyme IgG P66 Ab Absent (.); Lyme IgG P93 Ab Absent (.); Lyme IgM P23 Ab Absent (.); Lyme IgM P39 Ab Absent (.); Lyme IgM P41 Ab Present (.)
[2019-07-08 12:49] LABS: Lyme IgG WB Interpretation Negative (.); Lyme IgM WB Interpretation Negative (.)
== END ==
PROVIDERS: Family Provider Nurse Practitioner Family; PCP Nurse Practitioner Family; Referring Provider Nurse Practitioner Family; Visit Provider Nurse Practitioner Family
DX: M25.50 Pain in unspecified joint (principal); M79.10 Myalgia, unspecified site
CPT/HCPCS: 36415; 80053; 82550; 84439; 84443; 84550; 85027; 85652; 86038; 86140; 86431; 86617

== ENCOUNTER → 2020-04-24 15:44 | Outpatient (CLI) | payer OTHER, SELFPAY ==
[2018-03-24 10:22] VITALS: BMI 36.3
[2020-04-24 17:58] LABS: T4 Free Direct 0.93 ng/dL (0.76-1.46); Thyroid Stim Hormone (TSH) 2.77 uIU/mL (0.358-3.74)
== END ==
PROVIDERS: PCP Nurse Practitioner Family; Referring Provider Nurse Practitioner Family; Visit Provider Nurse Practitioner Family
DX: E03.9 Hypothyroidism, unspecified (principal)
CPT/HCPCS: 36415; 84439; 84443

== ENCOUNTER → 2020-11-08 16:56 | Outpatient (CLI) | payer OTHER, SELFPAY ==
[2018-03-24 10:22] VITALS: BMI 36.3
[2020-11-08 18:39] LABS: T4 Free Direct 1.15 ng/dL (0.76-1.46); Thyroid Stim Hormone (TSH) 2.51 uIU/mL (0.358-3.74)
== END ==
PROVIDERS: PCP Nurse Practitioner Family; Referring Provider Nurse Practitioner Family; Visit Provider Nurse Practitioner Family
DX: E03.9 Hypothyroidism, unspecified (principal)
CPT/HCPCS: 36415; 84439; 84443

== ENCOUNTER → 2021-05-06 11:56 | Outpatient (CLI) | payer OTHER, SELFPAY ==
[2018-03-24 10:22] VITALS: BMI 36.3
[2021-05-06 15:42] LABS: Free T3 2.9 pg/mL (2.18-3.98); T4 Free Direct 1.16 ng/dL (0.76-1.46); Thyroid Stim Hormone (TSH) 1.92 uIU/mL (0.358-3.74)
== END ==
PROVIDERS: PCP Nurse Practitioner Family; Referring Provider Nurse Practitioner Family; Visit Provider Nurse Practitioner Family
DX: E03.9 Hypothyroidism, unspecified (principal)
CPT/HCPCS: 36415; 84439; 84443; 84481

== ENCOUNTER 2021-11-12 14:08 | Outpatient (CLI) | payer OTHER, SELFPAY ==
[2021-11-12 16:06] LABS: AST(SGOT) 13 U/L (15-37); Alanine Aminotransfer ALT/SGPT 31 U/L (16-61); Albumin, Serum 3.7 g/dL (3.2-5.0); Alkaline Phosphatase 74 U/L (45-117); Anion Gap 6 (5-15); BUN 13 mg/dL (7-18); BUN/Creat Ratio 16.2 RATIO (10-20); Calcium,Total 9.1 mg/dL (8.5-10.1); Chloride 106 mmol/L (98-107); Cholesterol 220 mg/dL (200); EST Glomerular Filtration Rate 109 mL/min (>60); Est Glom Filt Rate - Afr Amer 132 mL/min (>60); Globulin 3.8 g/dL (2.2-4.2); Glucose 80 mg/dL (74-106); High Density Lipoprotein 39 mg/dL; Protein, Total 7.5 g/dL (6.4-8.2); Sodium Level 139 mmol/L (136-145); T4 Free Direct 1.05 ng/dL (0.76-1.46); Thyroid Stim Hormone (TSH) 1.42 uIU/mL (0.358-3.74); Triglycerides 133 mg/dL; Very Low Density Lipoprotein 27 mg/dL (5-40)
== END 2021-11-12 23:59 | disposition home or self-care (01) ==
LOC: MTLAB 14:10
PROVIDERS: PCP Nurse Practitioner Family; Referring Provider Nurse Practitioner Family; Visit Provider Nurse Practitioner Family
DX: Z13.1 Encounter for screening for diabetes mellitus (principal); Z13.220 Encounter for screening for lipoid disorders; E03.9 Hypothyroidism, unspecified
CPT/HCPCS: 36415; 80053; 80061; 84439; 84443

== ENCOUNTER → 2022-05-09 | Outpatient (CLI) | payer OTHER, SELFPAY ==
[2022-05-09 11:01] LABS: Cholesterol 229 mg/dL (200); High Density Lipoprotein 38 mg/dL; T4 Free Direct 1.11 ng/dL (0.76-1.46); Thyroid Stim Hormone (TSH) 2.09 uIU/mL (0.358-3.74); Triglycerides 101 mg/dL; Very Low Density Lipoprotein 20 mg/dL (5-40)
== END | disposition home or self-care (01) ==
LOC: MTLAB 09:06
PROVIDERS: PCP Nurse Practitioner Family; Referring Provider Nurse Practitioner Family; Visit Provider Nurse Practitioner Family
DX: E78.5 Hyperlipidemia, unspecified (principal); E03.9 Hypothyroidism, unspecified
CPT/HCPCS: 36415; 80061; 84439; 84443

== ENCOUNTER → 2022-11-14 | Outpatient (CLI) | payer OTHER, SELFPAY ==
[2022-11-14 10:21] LABS: ALB/GLOB Ratio 1.1 RATIO (0.9-2.4); AST(SGOT) 14 U/L (15-37); Alanine Aminotransfer ALT/SGPT 38 U/L (16-61); Albumin, Serum 3.8 g/dL (3.2-5.0); Alkaline Phosphatase 68 U/L (45-117); Anion Gap 5 (5-15); BUN 13 mg/dL (7-18); BUN/Creat Ratio 16.3 RATIO (10-20); Chloride 107 mmol/L (98-107); Cholesterol 163 mg/dL (200); EST Glomerular Filtration Rate 109 mL/min (>60); Est Glom Filt Rate - Afr Amer 132 mL/min (>60); Globulin 3.4 g/dL (2.2-4.2); Glucose 96 mg/dL (74-106); High Density Lipoprotein 49 mg/dL; Potassium 4.5 mmol/L (3.5-5.1); Protein, Total 7.2 g/dL (6.4-8.2); Sodium Level 140 mmol/L (136-145); T4 Free Direct 1.14 ng/dL (0.76-1.46); Thyroid Stim Hormone (TSH) 1.19 uIU/mL (0.358-3.74); Triglycerides 67 mg/dL; Very Low Density Lipoprotein 13 mg/dL (5-40)
== END | disposition home or self-care (01) ==
PROVIDERS: PCP Nurse Practitioner Family; Referring Provider Nurse Practitioner Family; Visit Provider Nurse Practitioner Family
DX: E78.00 Pure hypercholesterolemia, unspecified (principal); E03.9 Hypothyroidism, unspecified; G47.33 Obstructive sleep apnea (adult) (pediatric); R63.8 Other symptoms and signs concerning food and fluid intake
CPT/HCPCS: 36415; 80053; 80061; 84439; 84443